=== PATIENT | male | born 1940 | race Caucasian/White ===

== ENCOUNTER 2016-03-20 08:36 | Day surgery (SDC) | payer MEDICARE, OTHER ==
[~2016-03-20] VITALS: Ht 185.4 cm; Wt 108.4 kg
[2016-03-20] VITALS (9 sets, daily range): BP systolic 132–164; BP diastolic 75–100
[~2016-03-20 08:36] MED LIST: ALPR0.2550 PO; ASP81TEC PO; ASPI-808 PO; ASPI1TAB17 PO; ATOR40TA70 PO; CANA300T PO; CETI10TA17 PO; CHOL100061 PO; CHOL200059 PO; CYAN100071 PO; CYAN50005 PO; DULA1.5P2 SQ; DULO60CA6 PO; ENAL2.5T PO; ENAL5TAB PO; GLUC1CAP9 PO; HYDR1TAB66 PO; MAGN100T3 PO; MELO-195 PO; MTP25TSR PO; MTX2.5T PO; MULT-608 PO; NAPR220T76 PO; OMEG1CAP74 PO; POTA99TA7 PO; SITA1TAB2 PO; SITA1TAB6 PO; TRAM50TA2 PO
[2016-03-20] MEDS ORDERED: HEParin (CATH LAB) 2,000 ML IV ONE (10:18)
[2016-03-20] MEDS ORDERED: LIDOCAINE 1% INJ 20 ML (XYLOCAINE) VIAL ONE (10:18)
[2016-03-20] MEDS ORDERED: NS IV 1000 ML 1,000 ML ONE (10:18)
[2016-03-20] MEDS ORDERED: NS IV 1000 ML 1,000 ML IV SCH (10:56)
[2016-03-20 11:05] LABS: MEAN PLATELET VOLUME 10.7 FL (7.4-10.4); RED BLOOD COUNT 5.27 10^6/uL (4.35-5.85); RED CELL DISTRIBUTION WIDTH 13.3 % (10.0-14.5); WHITE BLOOD COUNT 7.4 10^3/uL (4.3-11.0)
[2016-03-20 11:16] LABS: PROTHROMBIN TIME PATIENT 12.9 SEC (12.2-14.7)
--- NOTE | 2016-03-20 11:17 | Diagnostic Imaging Report ---
INDICATION: Peripheral vascular disease. EXAMINATION: Portable chest at 11:08 AM. FINDINGS: The heart size and pulmonary vascularity are normal. The lungs are clear. There are no effusions or pneumothoraces. IMPRESSION: Negative chest. Dictated by: Dictated on workstation # [id number]
[2016-03-20] MEDS ORDERED: GLUC-173 PO (11:24)
[2016-03-20 11:26] LABS: ALANINE AMINOTRANSFERASE 87 U/L (0-55); ALBUMIN 4.5 G/DL (3.2-4.5); ANION GAP 11 MMOL/L (5-14); ASPARTATE AMINO TRANSFERASE 52 U/L (5-34); BILIRUBIN,TOTAL 0.6 MG/DL (0.1-1.0); BLOOD UREA NITROGEN 9 MG/DL (7-18); BUN/CREATININE RATIO 9; CALCIUM 9.5 MG/DL (8.5-10.1); CARBON DIOXIDE 21 MMOL/L (21-32); CHLORIDE 109 MMOL/L (98-107); CHOLESTEROL 197 MG/DL (< 200); CREATININE SERUM 0.95 MG/DL (0.60-1.30); DIRECT LDL 127 MG/DL (1-129); GFR ESTIMATED > 60; GLUCOSE 115 MG/DL (70-105); POTASSIUM 4.2 MMOL/L (3.6-5.0); SODIUM 141 MMOL/L (135-145); TOTAL PROTEIN 7.2 G/DL (6.4-8.2); TRIGLYCERIDES 214 MG/DL (<150); VLDL CHOLESTEROL 43 MG/DL (5-40)
[2016-03-20] MEDS ORDERED: METO-272 PO (11:28)
[2016-03-20] MEDS ORDERED: fentaNYL INJECTION 100 MCG/2 ML AMP ONE (12:23)
[2016-03-20] MEDS ORDERED: MIDAZOLAM 5 MG/5 ML (VERSED) VIAL ONE (12:23)
--- NOTE | 2016-03-20 12:46 | Cardiac Procedure Note-CS/ASA ---
Pre-Procedure Note Pre-Op Procedure Note H&P Reviewed The H&P was reviewed, patient examined and no changes noted. Date H&P Reviewed: Mar 20, 2016 Time H&P Reviewed: 12:46 Conscious Sedation Pre-Proced Time Reviewed: 12:46 ASA Class: 3 Airway Mallampati Classification: ([place] appropriate class) I. II. III, IV Lungs Heart ASA score ASA 1: a normal healthy patient ASA 2: a patient with a mild systemic disease (mid diabetes, controlled hypertension, obesity x ASA 3: a patient with a severe systemic disease that limits activity (angina , COPD, prior Myocardial infarction) ASA 4: a patient with an incapacitating disease that is a constant threat to life (CHF, renal failure) ASA 5: a moribund patient not expected to survive 24 hrs. (ruptured aneurysm) ASA 6: a declared brain patient whose organs are being harvested. For emergent operations, add the letter E after the classification Grade 3 Sedation Plan: Analgesia, Amnesia, Plan communicated to team members, Discussed options with patient/fam, Discussed risks with patient/fam Note The patient is an appropriate candidate to undergo the planned procedure, sedation, and anesthesia. The patient immediately re-assessed prior to indication. GINNA SALGADO MD Mar 20, 2016 12:46
[2016-03-20] MEDS ORDERED: HEParin 1000 UNIT/ML (10ML VIAL) FOR BOLUS ONE (12:54)
[2016-03-20] MEDS ORDERED: PATIENT MAY USE OWN MEDS, ALL PO SCH (14:00)
[2016-03-20] MEDS ORDERED: CLOPIDOGREL 300 MG (PLAVIX) TABLET PO ONE (14:09)
[2016-03-20] MEDS ORDERED: ASPIRIN 325 MG (5 GR) TABLET ONE (14:09)
[2016-03-20] MEDS: ENALAPRIL 2.5 MG (VASOTEC) TAB PO SCH (18:51)
[2016-03-20] MEDS: NS IV 1000 ML 1,000 ML IV SCH (18:51)
[2016-03-21] VITALS: BP 155/76
[2016-03-21] MEDS: NS IV 1000 ML 1,000 ML IV SCH (02:01)
[2016-03-21 04:00] VITALS: BP 136/67
[2016-03-21 06:30] LABS: MEAN PLATELET VOLUME 10.2 FL (7.4-10.4); RED BLOOD COUNT 4.73 10^6/uL (4.35-5.85); RED CELL DISTRIBUTION WIDTH 13.3 % (10.0-14.5)
[2016-03-21 06:46] LABS: ANION GAP 9 MMOL/L (5-14); BLOOD UREA NITROGEN 9 MG/DL (7-18); BUN/CREATININE RATIO 10; CARBON DIOXIDE 23 MMOL/L (21-32); CHLORIDE 105 MMOL/L (98-107); CREATININE SERUM 0.88 MG/DL (0.60-1.30); GFR ESTIMATED > 60; GLUCOSE 123 MG/DL (70-105); POTASSIUM 3.9 MMOL/L (3.6-5.0); SODIUM 137 MMOL/L (135-145)
--- NOTE | 2016-03-21 07:40 | Cardiology Progress Note ---
Subjective Subjective/Events-last exam patient is laying down in bed, denied any chest pain or shortness of breath. Groin is healing well, pedal pulse is palpable diminished. Review of Systems General: No Chills, No Night Sweats, No Fatigue, No Malaise, No Appetite, No Other HEENT: No Head Aches, No Visual Changes, No Eye Pain, No Ear Pain, No Dysphasia , No Sinus Congestion, No Post Nasal Drip, No Sore Throat, No Other Pulmonary: No Dyspnea, No Cough, No Pleuritic Chest Pain, No Other Cardiovascular: No: Chest Pain, Edema, Lt Headedness, Orthopnea, Other, Palpitations, Paroxysmal Noc. Dyspnea Objective-Cardiology Exam Last Set of Vital Signs Vital Signs 03/21/16 04:00 Temp 98.9 Pulse 77 Resp 18 B/P 136/67 Pulse Ox 90 O2 Delivery Room Air Capillary Refill : Less Than 3 Seconds General: Alert, Oriented X3, Cooperative HEENT: Atraumatic, PERRLA Neck: Supple, No JVD, No Thyromegaly Lungs: Clear to Auscultation, Normal Air Movement Heart: Regular Rate, Normal S1, Normal S2, No Murmurs Abdomen: Normal Bowel Sounds, Soft, No Tenderness, No Hepatosplenomegaly, No Masses Extremities: No Clubbing, No Cyanosis, No Edema, Normal Pulses, No Tenderness/ Swelling Skin: No Rashes, No Breakdown, No Significant Lesion Neuro: Normal Gait, Normal Speech, Strength at 5/5 X4 Ext, Normal Tone, Sensation Intact Psych/Mental Status: Mental Status NL, Mood NL Results Lab Laboratory Tests 03/20/16 10:45 03/21/16 06:16 A/P-Cardiology Admission Diagnosis peripheral arterial disease Hypertension Hyperlipidemia Claudication Assessment/Plan Peripheral arterial disease, medical therapy is recommended Hypertension, controlled continue current medication Hyperlipidemia, continue current medication monitor Claudication, recommended exercise. GINNA SALGADO MD Mar 21, 2016 07:40
[2016-03-21] MEDS ORDERED: CLOP75TA28 PO (07:41)
[2016-03-21] MEDS ORDERED: ASPI-983 PO (07:41)
--- NOTE | 2016-03-21 07:42 | Discharge Inst-Post CATH ---
Discharge Inst-CATH Post Cardiac Cath D/C Inst Follow Up/Plan Hold metformin for [address] Jaime's office in 2-4 weeks CARDIAC CATH DISCHARGE INSTRUCTIONS *Hold Metformin for 48 hours post heart cath. ACTIVITY * Go Home directly and rest. * Limit activity of the leg (or wrist if it was used) for 7 days including aerobics, swimming, jogging, bicycling, etc. * Restrict stair-climbing for 7 days if possible, if not, climb up with your non -cath leg, then bring together on the same step. * Avoid lifting, pushing, pulling or excessive movement of the affected extremity for 7 days. * Customary sexual activity may be resumed after 2 days-use caution not to use a position that strains or causes pain to the affected extremity. * No driving for 24 hours. * NO SMOKING. * Avoid straining for bowel movements for 7 days. * Gentle walking on level ground is allowed. * Returning to work will depend on the type of procedure and the results. Your doctor will discuss this with you. CALL YOUR DOCTOR FOR ANY OF THE FOLLOWING: *If bleeding from the puncture site occurs- Apply gentle pressure to site with clean cloth and call your doctor or EMS. * If a knot or lump forms under the skin, increases in size, or causes pain. * If bruising appears to be worsening or moving further down your leg instead of disappearing. * Temperature above 101 F. CARE OF YOUR GROIN INCISION; * Bruising or purple discoloration of the skin near the puncture site is common. * You may shower only, no bathtub bathing for 5 days. Be careful to avoid slipping as your leg may feel stiff. * If a closure device was used on your femoral artery, please see the attached guide regarding care of the device and your leg. * REMOVE the dressing from your groin the next day after your procedure in the shower. CARE OF YOUR WRIST INCISION; * Bruising or purple discoloration of the skin near the puncture site is common. * You may shower. * DO NOT submerge wrist. * Remove dressing in 24 hours. GINNA JAIME MD Mar 21, 2016 07:42
[2016-03-21 08:00] VITALS: BP 150/83
[2016-03-21] MEDS: ENALAPRIL 2.5 MG (VASOTEC) TAB PO SCH (08:20)
[2016-03-21] MEDS ORDERED: meTOproloL SUCCINATE 50 MG (TOPROL XL) TAB PO SCH (09:00)
[2016-03-21] MEDS ORDERED: INVOKANA 300 MG PO SCH (09:00)
[2016-03-21] MEDS ORDERED: ASPIRIN E.C. 81 MG (ECOTRIN) TAB PO SCH (09:00)
[2016-03-21] MEDS ORDERED: CLOPIDOGREL 75 MG (PLAVIX) TABLET PO SCH (09:00)
[2016-03-21] MEDS ORDERED: ATORVASTATIN 40 MG (LIPITOR) TABLET PO SCH (09:00)
--- NOTE | 2016-03-21 11:27 | DISCHARGE SUMMARY ---
PROCEDURE PHYSICIAN: GINNA SALGADO PERIPHERAL ANGIOGRAM REPORT DATE OF PROCEDURE: 03/20/2016 REFERRING PHYSICIAN: Dr. Rudolph BRIEF HISTORY: Mr. Garza is a 75-year-old gentleman with history of peripheral arterial disease. He has moderate disease. He has been having worsening claudication and weakness. He underwent ABIs which was 0.5 on the left and 0.8 on the right. I scheduled him for peripheral angiogram possible angioplasty. PROCEDURE NOTE: After explaining the procedure to the patient, all pros and cons were explained. All questions were answered. The patient signed a consent, then he was placed on the cardiac catheterization laboratory. The right groin was prepped in a sterile fashion. Local anesthesia applied to right groin. 6-[place] sheath was placed in the right femoral artery. Runoff of the right lower extremity was done. Then I advanced a pigtail catheter to the abdominal aorta. Abdominal aortogram and evaluation of the bifurcation was done. Then I advanced a Storq wire in the left common iliac and advanced a pigtail catheter and did runoff through the pigtail in the left lower extremity. I noted significant disease. I advanced short straight wire then long straight wire, then a mini catheter for multiple level angiogram, starting at the proximal SFA distal SFA then the mini catheter was in the anterior tibial artery. On the angiogram there total occlusion of the anterior tibial artery and the posterior tibial artery, reconstructed distally by collaterals. The patient was given 5000 units of heparin. I attempted multiple times to cross that anterior tibial artery occlusion. After using multiple guidewires and catheter I was unsuccessful. I pulled the catheter back to the popliteal artery. Angiogram was done. Then I measured the pressure gradient across the lesion in the distal SFA, which was about 15 to 20 mmHg. Reintroduce Storq wire, removed the straight catheter, then pulled the sheath back to the common femoral artery and did runoff to the left lower extremity. The lesion appeared to be 40 to 50% stenosis at most. At that time, I decided to use conservative management. During the procedure I advanced a balloon to the anterior tibial artery 2.0 x 40 mm [place] inflated to 4 atmospheres for support and advanced the wire in the mid anterior tibial without success. FINDINGS: 1. Abdominal aortogram showed atherosclerotic disease involving the bifurcation. No dissection or aneurysm. 2. Right lower extremity runoff: The right lower extremity showed mild disease in the SFA down to the trifurcation with mild small vessel disease distally. 3. Left lower extremity: The left lower extremity angiogram showed 40 to 50% stenosis in the mid to distal SFA. The anterior tibial artery is occluded and the posterior tibial artery was occluded receiving collaterals distally from the peroneal artery. Attempts for intervention on the total occlusion of anterior tibial artery without success as described above. CONCLUSION: 1. Total occlusion of the anterior and posterior tibial artery receiving collateral from the peroneal artery. Attempted to intervene on the anterior tibial artery without success. Mild to moderate disease in the mid to distal SFA, nonobstructive disease. Mild disease otherwise. 2. Right lower extremity angiogram showed a good flow down to the trifurcation with mild disease distally, small vessel disease. 3. Mild atherosclerotic plaque in the abdominal aorta/ DISCUSSION AND RECOMMENDATION: The patient will be treated medically. Continue to monitor. If the patient developed ischemic ulcer or ischemic foot I will consider pedal access with retrograde attempt. FINAL DIAGNOSIS: 1. Peripheral arterial disease. 2. Carotid stenosis. 3. Hypertension. 4. Hyperlipidemia Job ID: [id number] Dictated Date: 03/20/2016 14:07:21 Grove Superintendent Date: 03/21/2016 11:24:53/martín
== END 2016-03-21 08:47 | disposition home or self-care (01) ==
LOC: CATH 08:36 → ICU 17:33 → 4TH 20:36 → CATH 03-21 08:47
PROVIDERS: ATTEND Internal Medicine Cardiovascular Disease
DX: I70.213 Atherosclerosis of native arteries of extremities with intermittent claudication, bilateral legs (principal); I10 Essential (primary) hypertension; E78.5 Hyperlipidemia, unspecified; I65.29 Occlusion and stenosis of unspecified carotid artery; E66.9 Obesity, unspecified; E11.9 Type 2 diabetes mellitus without complications; F41.8 Other specified anxiety disorders; I49.3 Ventricular premature depolarization; M06.9 Rheumatoid arthritis, unspecified; Z79.899 Other long term (current) drug therapy; Z87.891 Personal history of nicotine dependence; Z68.31 Body mass index [BMI] 31.0-31.9, adult
CPT/HCPCS: 36247; 36415; 37228; 71010; 75625; 75716; 75774; 80048; 80053; 80061; 85027; 85347; 85610; 85730; 87081; 93005

== ENCOUNTER → 2018-03-06 | Outpatient (CLI) | payer MEDICARE, OTHER ==
[~2018-03-06] MED LIST changes: +ASPI-983 PO; +CLOP75TA28 PO; +GLUC-173 PO; +METO-370 PO
== END ==
LOC: CARD 09:39
PROVIDERS: ATTEND Internal Medicine Cardiovascular Disease
DX: R07.9 Chest pain, unspecified (principal); I49.9 Cardiac arrhythmia, unspecified; I10 Essential (primary) hypertension; E78.5 Hyperlipidemia, unspecified; I34.0 Nonrheumatic mitral (valve) insufficiency; E11.9 Type 2 diabetes mellitus without complications; R60.9 Edema, unspecified; M06.9 Rheumatoid arthritis, unspecified
CPT/HCPCS: 93306

== ENCOUNTER → 2018-03-09 | Outpatient (CLI) | payer MEDICARE, OTHER ==
[~2018-03-09] VITALS: Ht 185.4 cm; Wt 111.6 kg
[~2018-03-09] MED LIST changes: +CATHETER FLUSH 10 ML SYR IV PRN; +REGADENOSON 0.4 MG/5 ML SYR (LEXISCAN) IV ONE
[2018-03-09 09:13] VITALS: BP 165/97
[2018-03-09 09:16] VITALS: BP 165/97
[2018-03-09 09:17] VITALS: BP 153/94
--- NOTE | 2018-03-09 11:47 | STRESS TEST ---
DATE OF SERVICE: 03/09/2018 LEXISCAN MYOVIEW STRESS TEST REPORT Baseline heart rate is 77, baseline blood pressure 165/97. Baseline EKG is sinus rhythm with no ischemic changes. In summary, the patient was injected with 10.06 mCi of technetium-99 Myoview and the resting images were obtained. Then, the patient received 0.4 mg of Lexiscan followed by 29.2 mCi of technetium-99 Myoview. Throughout the test, there were no EKG changes, frequent PVCs noted after the Lexiscan injection with ventricular trigeminy. The resting and stress images were reviewed and compared in the short axis, horizontal long axis, and vertical long axis views. Review of the images showed good radiotracer uptake with no significant ischemia or infarction. SSS is 0. TID value 0.99. On the gated images, the left ventricle appeared to be in normal size with normal contractility. Calculated ejection fraction 57%. CONCLUSION: 1. The patient tolerated Lexiscan well. 2. Frequent premature ventricular contraction noted during test including ventricular trigeminy. 3. Normal left ventricular size with normal contractility. Calculated ejection fraction 57%. 4. No ischemia or infarction on SPECT images. Job ID: [id number] DocumentID: [id number] Dictated Date: 03/09/2018 11:34:07 Financial Services Agent Date: 03/09/2018 11:46:14 Dictated By: GINNA SALGADO MD
== END ==
LOC: CARD 07:31
PROVIDERS: ATTEND Internal Medicine Cardiovascular Disease
DX: R07.9 Chest pain, unspecified (principal); I10 Essential (primary) hypertension; E78.5 Hyperlipidemia, unspecified; I34.0 Nonrheumatic mitral (valve) insufficiency; E11.9 Type 2 diabetes mellitus without complications; R60.0 Localized edema; M06.9 Rheumatoid arthritis, unspecified
CPT/HCPCS: 78452; 93017

== ENCOUNTER → 2019-05-17 | Outpatient (CLI) | payer MEDICARE, OTHER ==
[~2019-05-17] MED LIST changes: -CATHETER FLUSH 10 ML SYR IV PRN; -METO-370 PO; +METO50TA7 PO; -REGADENOSON 0.4 MG/5 ML SYR (LEXISCAN) IV ONE
--- NOTE | 2019-05-17 13:01 | Diagnostic Imaging Report ---
PROCEDURE: US right lower extremity venous. TECHNIQUE: Multiple Real-time grayscale images were obtained over the right lower extremity in various projections. Additional spectral analysis and color Doppler duplex images were also obtained. INDICATION: Lump in the right popliteal region. FINDINGS: There is no evidence of right lower extremity DVT. The right lower extremity deep venous system shows normal compressibility with normal response to augmentation and Valsalva. There is a solid-appearing mass in the posterior right knee measuring up to 8.7 x 6.0 x 6.5 cm. There is internal vascularity. No other abnormalities are identified. IMPRESSION: 1. No evidence of right lower extremity DVT. 2. Large solid mass in the posterior right knee. This could represent a very large lymph node or other neoplastic process. A dedicated MRI of the right knee with and without intravenous contrast would be recommended for further characterization. Dictated by: Dictated on workstation # [id number]
== END ==
LOC: RAD 11:29
PROVIDERS: ATTEND Family Medicine
DX: R22.41 Localized swelling, mass and lump, right lower limb (principal)

== ENCOUNTER → 2019-05-20 | Outpatient (CLI) | payer MEDICARE, OTHER ==
[~2019-05-20] MED LIST changes: +GADOBUTROL 10 MMOL/10 ML (GADAVIST) VIAL IV ONE
[2019-05-20 08:31] LABS: BUN/CREATININE RATIO 12; CREATININE SERUM 0.97 MG/DL (0.60-1.30); GFR ESTIMATED > 60
--- NOTE | 2019-05-20 11:48 | Diagnostic Imaging Report ---
PROCEDURE: MR imaging right lower extremity with and without contrast. TECHNIQUE: Multiplanar, multisequence pre and post contrast-enhanced MR imaging of the right lower extremity was accomplished. INDICATION: Mass growing in the posterior aspect of the knee, recent sonogram which demonstrated a lesion not consistent with a cyst. EXAMINATION: An MRI of the right lower extremity without contrast 05/20/2019. FINDINGS: Correlation is made to recent sonogram dated 05/17/2019. There is a large heterogeneous mass within the posterior knee corresponding to sonographic findings. This currently measures 9.9 cm craniocaudal dimension, 6 cm AP dimension and 8 cm transverse dimension. It is predominantly T2 hyperintense. A more focal area of marked hyperintensity seen centrally on T2-weighted imaging perhaps focal fluid. Adjacent to this hyperintensity are areas of linear hypointensity which have signal characteristics demonstrating mild questioned susceptibility artifact. These could be hemorrhagic components or even vascular components. Calcifications in the region could cause a similar appearance as well. There is surrounding edema about the lesion. This lesion predominantly lies along the lateral border of the medial gastrocnemius muscle. It is difficult to ascertain if this is intramuscular or lies adjacent to the muscle pushing the muscle towards the left. The anterior border of the lesion immediately abuts the neurovascular bundle. There are multiple adjacent prominent vessels inferior to the mass extending into the medial gastrocnemius muscle. The underlying osseous structures demonstrate no evidence for acute abnormality. Within the knee itself the ACL PCL and extensor mechanism appear intact. MCL and lateral collateral edematous complex also intact. There is abnormal signal intensity throughout the posterior horn of the medial meniscus. Findings consistent with a tear of the medial posterior meniscus. The lateral meniscus demonstrates abnormal signal intensity as well both anterior and posterior horns consistent with tears. There is diffuse heterogeneity and loss of cartilage in the medial and lateral joint compartments. Patellofemoral cartilage is mildly thinned. There is a small joint effusion. Postcontrast imaging demonstrates diffuse heterogeneous enhancement of the mass with some central residual hypointensity throughout the lesion demonstrating no enhancement. On postcontrast imaging especially the axial sequences there is questioned fluid fluid levels or abnormality along the vasculature inferior to the mass with a possible similar finding proximal to the mass. Recent sonogram demonstrated no evidence for deep vein thrombosis however perhaps repeating the sonogram for reevaluation of the venous and arterial structures could help exclude interval development of an abnormality as clinically indicated. IMPRESSION: 1. Large soft tissue mass as described nonspecific but possibilities include soft tissue sarcoma with other benign and aggressive lesions also in the differential. A vascular mass given its proximity to the neurovascular bundle is not excluded. A neurogenic lesion also in the differential. 2. Abnormal signal intensity seen within some of the vessels proximal and distal to the mass, small nonocclusive deep vein thrombus difficult to completely exclude although not seen recently but repeat sonogram may be warranted depending on the patient's symptoms and these findings. Please call report to the clinician and lateral no about the venous findings and that a repeat venous sonogram may be warranted thank you Called to Catalina at 11:46 a.m by jane. Dictated on workstation # [id number]
== END ==
LOC: RAD 07:40
PROVIDERS: ATTEND Family Medicine
DX: R22.41 Localized swelling, mass and lump, right lower limb (principal); M25.561 Pain in right knee
CPT/HCPCS: 36415; 73720; 82565; 84520

== ENCOUNTER → 2019-05-24 | Outpatient (CLI) | payer MEDICARE, OTHER ==
[~2019-05-24] MED LIST changes: -GADOBUTROL 10 MMOL/10 ML (GADAVIST) VIAL IV ONE
--- NOTE | 2019-05-24 12:25 | Diagnostic Imaging Report ---
PROCEDURE: CT chest, abdomen, and pelvis without contrast. TECHNIQUE: Multiple contiguous axial images were obtained through the chest, abdomen, and pelvis without the use of intravenous contrast. Auto Exposure Controls were utilized during the CT exam to meet ALARA standards for radiation dose reduction. INDICATION: Right popliteal mass. CT CHEST: No axillary lymphadenopathy is detected. No definite mediastinal or hilar lymphadenopathy is detected. No pericardial or pleural fluid is detected. No pulmonary mass, nodule or infiltrate is detected. IMPRESSION: Unremarkable noncontrast CT of the chest. CT ABDOMEN AND PELVIS: No discrete liver mass is detected. Gallbladder is unremarkable. No biliary duct dilatation is identified. The pancreas and spleen are unremarkable. No adrenal mass is detected. No definite renal calculi or hydronephrosis is identified. Aorta is non-aneurysmal. Patient does have a retroaortic left renal vein, a normal variant. No central retroperitoneal or mesenteric lymphadenopathy is detected. The small and large bowel loops are normal in caliber. No obstruction is identified. No free fluid or fluid collection is seen. The bladder and prostate are unremarkable. No definite iliac or inguinal lymphadenopathy is detected. The bony structures appear nonacute. IMPRESSION: Essentially unremarkable noncontrast CT of the abdomen and pelvis. No mass or evidence of lymphadenopathy is detected. Dictated by: Dictated on workstation # [id number]
== END ==
LOC: RAD 11:36
PROVIDERS: ATTEND Family Medicine
DX: R22.41 Localized swelling, mass and lump, right lower limb (principal)
CPT/HCPCS: 71250; 74176

== ENCOUNTER → 2019-09-16 | Outpatient (CLI) | payer MEDICARE, OTHER | LOC: LABNPT 08:24 | PROVIDERS: ATTEND Orthopaedic Surgery | DX: Z20.828 Contact with and (suspected) exposure to other viral communicable diseases (principal) | CPT/HCPCS: 87635 ==

== ENCOUNTER → 2019-10-11 | Outpatient (CLI) | payer MEDICARE, OTHER | LOC: CARD 12:38 | PROVIDERS: ATTEND Internal Medicine Hematology & Oncology | DX: I51.7 Cardiomegaly (principal); C49.9 Malignant neoplasm of connective and soft tissue, unspecified; Z20.828 Contact with and (suspected) exposure to other viral communicable diseases | CPT/HCPCS: 93306 ==

== ENCOUNTER 2019-10-19 07:15 | Outpatient (CLI) | payer MEDICARE, OTHER ==
[~2019-10-19] VITALS: Ht 185.4 cm; Wt 95.3 kg
[2019-10-19] MEDS ORDERED: OXYC5CAP18 PO (11:05)
[2019-10-19] MEDS ORDERED: POTA99TA21 PO (11:05)
[2019-10-19] MEDS ORDERED: ASPI-983 PO (11:05)
[2019-10-19] MEDS ORDERED: METF-399 PO (11:05)
[2019-10-19] MEDS ORDERED: EXEN2PEN SQ (11:05)
== END 2019-10-19 11:12 | disposition home or self-care (01) ==
LOC: PREOP 07:15
PROVIDERS: ATTEND Surgery
DX: Z01.818 Encounter for other preprocedural examination (principal)

== ENCOUNTER 2019-10-21 10:38 | Day surgery (SDC) | payer MEDICARE, OTHER ==
[~2019-10-21] VITALS: Ht 185.4 cm; Wt 95.3 kg
[2019-10-21] VITALS (7 sets, daily range): BP systolic 119–135; BP diastolic 42–73
[~2019-10-21 10:38] MED LIST changes: +EXEN2PEN SQ; +METF-399 PO; +OXYC5CAP18 PO; +POTA99TA21 PO
[2019-10-21] MEDS ORDERED: HEParin (CENTRAL IV FLUSH) 500 UNIT/5 ML SYR ONE (10:44)
[2019-10-21] MEDS ORDERED: BUP/EPI 0.5% 1:200,000 (MARCAINE) 10ML VIAL IJ ONE (10:44)
[2019-10-21] MEDS ORDERED: 0.9% SODIUM CHLORIDE PF INJ 20 ML VIAL ONE (10:44)
[2019-10-21] MEDS: LACTATED RINGERS 1,000 ML IV PRN ×2 (11:00→11:15)
[2019-10-21] MEDS ORDERED: ceFAZolin 2 GM IV Premixed 50 ML IV ONE (11:30)
[2019-10-21] MEDS ORDERED: MIDAZOLAM 2 MG/2 ML (VERSED) VIAL ONE (11:55)
[2019-10-21] MEDS ORDERED: fentaNYL INJECTION 100 MCG/2 ML AMP ONE (11:55)
--- NOTE | 2019-10-21 12:17 | Progress Note-Pre Operative ---
Pre-Operative Progress Note H&P Reviewed The H&P was reviewed, patient examined and no changes noted. 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
[2019-10-21] MEDS ORDERED: HYDR-3812 PO (12:19)
--- NOTE | 2019-10-21 12:20 | Discharge Inst-Surgical ---
D/C Lap Instructions-RACHELL New, Converted, or Re-Newed RX: RX on Chart Follow Up PRN Activity as tolerated Regular Diet Symptoms to Report: Fever over 101 degree F, Nausea/Vomiting Infection Signs and Symptoms to report: Increased redness, Foul odor of wound, Increased drainage Bathing instructions: May shower Operative Area Clean/Dry; Keep incision clean/dry If any problems/questions: Contact your physician or go to Emergency Room MAI LOVETT MD Oct 21, 2019 12:20
[2019-10-21] MEDS ORDERED: ONDANSETRON 4 MG/2 ML (SDV) Z0FRAN IVP PRN (12:30)
[2019-10-21] MEDS ORDERED: ACETAMINOPHEN 325 MG TABLET PO PRN (12:30)
[2019-10-21] MEDS ORDERED: HYDROcodone/APAP 5 MG/325 MG (LORTAB) TAB PO ONE (12:30)
[2019-10-21] MEDS ORDERED: morphine INJ 10 MG/ML 1ML (SYR OR VIAL) IVP PRN ×2 (12:30)
[2019-10-21] MEDS ORDERED: proPOfol 200 MG/20 ML (DIPRIVAN) VIAL IV ONE (12:48)
[2019-10-21] MEDS ORDERED: LIDOCAINE PF 2% 5 ML (XYLOCAINE) VIAL ONE (12:48)
--- NOTE | 2019-10-21 12:58 | Progress Note-Post Operative ---
Post-Operative Progess Note Surgeon (s)/Group Burner Machine (s) Surgeon MAI LOVETT MD Group Burner Machine: anselmo lazcano HYDROGEN PLANT OPERATOR Pre-Operative Diagnosis metastatic sarcoma right lower extremity Post-Operative Diagnosis same Procedure & Operative Findings Date of Procedure 10/21/19 Procedure Performed/Findings left subclavian groshong implantable catheter placement under flouroscopy. Anesthesia Type mac with local Estimated Blood Loss Estimated blood loss (mL): minimal Specimens/Packing Specimens Removed none MAI LOVETT MD Oct 21, 2019 12:58
--- NOTE | 2019-10-21 13:41 | Anesthesia-General Post-Op ---
MAC Patient Condition Mental Status/LOC: Same as Preop Cardiovascular: Satisfactory Nausea/Vomiting: Absent Respiratory: Satisfactory Pain: Controlled Complications: Absent Post Op Complications Complications None Follow Up Care/Instructions Patient Instructions None needed. Anesthesiology Discharge Order Discharge Order Patient is doing well, no complaints, stable vital signs, no apparent adverse anesthesia problems. No complications reported per nursing. AFSANEH WAGONER CRNA Oct 21, 2019 13:41
--- NOTE | 2019-10-21 14:51 | Diagnostic Imaging Report ---
INDICATION: Fluoroscopy for Groshong catheter placement. Fluoroscopy was provided in the OR during Groshong catheter placement. 10 seconds of fluoroscopic time was utilized. Single image was obtained demonstrating a left-sided Groshong catheter with tip overlying SVC. IMPRESSION: Fluoroscopy for Groshong catheter placement. Dictated by: Dictated on workstation # [id number]
--- NOTE | 2019-10-21 23:10 | OPERATIVE REPORT ---
DATE OF SERVICE: 10/21/2019 ATTENDING PRIMARY CARE PHYSICIAN: Dr. Gabbie Rudolph. PREOPERATIVE DIAGNOSIS: Right lower extremity metastatic sarcoma. POSTOPERATIVE DIAGNOSES: Right lower extremity metastatic sarcoma. PROCEDURE: Placement of left subclavian Groshong implantable catheter under fluoroscopy. SURGEON: Ysabel Lovett MD INSTRUCTIONAL MATERIALS DIRECTOR: Torin Hyman APRN. ANESTHESIA: Monitored anesthesia care with local. ESTIMATED BLOOD LOSS: Minimal. FINDINGS: Catheter tip at superior vena caval -- right atrial junction. DISPOSITION: The patient tolerated the procedure well. INDICATIONS: The patient is a 79-year-old male who states that he developed pain and noticed a mass in the right popliteal region approximately 5 months ago. He then states that the lesion grew rapidly in size over a short period of time. He then underwent an ultrasound as well as an MRI, which was consistent with a soft tissue sarcoma. The lesion was 8.7 x 6.5 x 6 cm in size. He then underwent radiation therapy to downsize the lesion and underwent resection of the sarcoma on 09/23/2019. He did have further workup, which did show bilateral pulmonary metastatic nodules. A total of 4 identified. He does not appear to be a surgical candidate for resection of these lesions and will undergo chemotherapy. DESCRIPTION OF PROCEDURE: The patient was brought to the operating room, laid supine on the table. After adequate IV pain and stated medications and monitored anesthesia care, the chest and neck were prepped and draped in standard surgical fashion. A 1% lidocaine with epinephrine was then used to anesthetize overlying skin in the left subclavian region. The left subclavian vein was then cannulated with drawing of venous blood. Guidewire was then inserted without any resistance under fluoroscopy. The cannulating needle removed and a skin incision made using a 15 blade. The dilator and sheath were then placed over the guidewire. The guidewire and the dilator were then removed and a Groshong implantable catheter placed until the catheter tip was at the superior vena caval -- right atrial junction. The inner wire within the catheter was removed and the catheter cut down to size and the port placed onto the catheter. The chest reservoir was then created by extending the skin incision laterally. A plane created between the subcutaneous fat as well as the anterior pectoralis fascia using electrocautery as well as blunt dissection. Good hemostasis was observed and the port was placed into the reservoir and sutured to the anterior pectoralis fascia using interrupted 3-0 Vicryl suture. Subcutaneous tissue was then reapproximated using 3-0 Vicryl interrupted suture and the skin was closed using 4-0 Monocryl running subcuticular suture. Wound was then cleaned and covered with Dermabond. The patient tolerated the procedure well. We will get a post-procedure chest x-ray once confirmation of placement, the port may be accessed and used at any time. Job ID: [id number] DocumentID: [id number] Dictated Date: 10/21/2019 12:50:05 Field Investigator Date: 10/21/2019 23:09:37 Dictated By: YSABEL LOVETT MD
--- NOTE | 2019-10-22 08:18 | Diagnostic Imaging Report ---
INDICATION: Port-A-Cath placement Frontal chest obtained at 0131 p.m. is compared to 03/20/2016. The heart is mildly enlarged. Mediastinal silhouette is unremarkable. The lungs are clear. There is no pneumothorax or pleural fluid. There is a Port-A-Cath over the left chest with catheter tip overlying the distal SVC. IMPRESSION: Cardiomegaly. No focal infiltrate or pneumothorax or pleural fluid. Left-sided portacatheter the left subclavian vein with tip overlying SVC. Dictated by: Dictated on workstation # [id number]
== END 2019-10-21 14:20 | disposition home or self-care (01) ==
LOC: SDC 10:38
PROVIDERS: ATTEND Surgery
DX: C49.21 Malignant neoplasm of connective and soft tissue of right lower limb, including hip (principal); C78.01 Secondary malignant neoplasm of right lung; C78.02 Secondary malignant neoplasm of left lung; I10 Essential (primary) hypertension; E11.40 Type 2 diabetes mellitus with diabetic neuropathy, unspecified; E78.00 Pure hypercholesterolemia, unspecified; G47.33 Obstructive sleep apnea (adult) (pediatric); E78.5 Hyperlipidemia, unspecified; Z87.891 Personal history of nicotine dependence; Z79.899 Other long term (current) drug therapy; Z79.84 Long term (current) use of oral hypoglycemic drugs; Z88.8 Allergy status to other drugs, medicaments and biological substances
CPT/HCPCS: 36561; 71045; 76000; 82962; 87081; 94664; C1788

== ENCOUNTER 2019-10-25 13:45 | Outpatient (RCR) | payer MEDICARE, OTHER ==
[2019-08-06 10:11] LABS: BASOPHILS % (AUTO) 0 % (0-10); EOSINOPHILS # (AUTO) 0.1 10^3/uL (0.0-0.3); EOSINOPHILS % (AUTO) 1 % (0-10); HEMATOCRIT 41 % (40-54); HEMOGLOBIN 13.5 G/DL (13.3-17.7); LYMPHOCYTES # (AUTO) 1.5 X 10^3 (1.0-4.0); LYMPHOCYTES % (AUTO) 13 % (12-44); MEAN CORPUSCULAR HEMOGLOBIN 29 PG (25-34); MEAN CORPUSCULAR HGB CONC 33 G/DL (32-36); MEAN CORPUSCULAR VOLUME 89 FL (80-99); MEAN PLATELET VOLUME 9.6 FL (7.4-10.4); MONOCYTES # (AUTO) 1.2 X 10^3 (0.0-1.0); MONOCYTES % (AUTO) 10 % (0-12); NEUTROPHILS # (AUTO) 8.7 X 10^3 (1.8-7.8); NEUTROPHILS % (AUTO) 76 % (42-75); PLATELET COUNT 484 10^3/uL (130-400); WHITE BLOOD COUNT 11.5 10^3/uL (4.3-11.0)
[2019-08-06 10:29] LABS: ALANINE AMINOTRANSFERASE 23 U/L (0-55); ALKALINE PHOSPHATASE 102 U/L (40-136); BILIRUBIN,TOTAL 0.7 MG/DL (0.1-1.0); BUN/CREATININE RATIO 12; CALCIUM 10.2 MG/DL (8.5-10.1); CARBON DIOXIDE 20 MMOL/L (21-32); CHLORIDE 103 MMOL/L (98-107); GFR ESTIMATED > 60; GLUCOSE 124 MG/DL (70-105); POTASSIUM 4.5 MMOL/L (3.6-5.0); SODIUM 138 MMOL/L (135-145); TOTAL PROTEIN 7.8 GM/DL (6.4-8.2)
[2019-09-08 09:41] LABS: BASOPHILS % (AUTO) 0 % (0-10); EOSINOPHILS # (AUTO) 0.2 10^3/uL (0.0-0.3); EOSINOPHILS % (AUTO) 2 % (0-10); HEMATOCRIT 42 % (40-54); HEMOGLOBIN 13.3 G/DL (13.3-17.7); LYMPHOCYTES # (AUTO) 2.1 X 10^3 (1.0-4.0); LYMPHOCYTES % (AUTO) 16 % (12-44); MEAN CORPUSCULAR HEMOGLOBIN 28 PG (25-34); MEAN CORPUSCULAR HGB CONC 32 G/DL (32-36); MEAN CORPUSCULAR VOLUME 88 FL (80-99); MEAN PLATELET VOLUME 9.4 FL (7.4-10.4); MONOCYTES # (AUTO) 1.1 X 10^3 (0.0-1.0); MONOCYTES % (AUTO) 8 % (0-12); NEUTROPHILS # (AUTO) 9.2 X 10^3 (1.8-7.8); NEUTROPHILS % (AUTO) 74 % (42-75); PLATELET COUNT 554 10^3/uL (130-400); WHITE BLOOD COUNT 12.6 10^3/uL (4.3-11.0)
[2019-09-08 09:58] LABS: ALANINE AMINOTRANSFERASE 37 U/L (0-55); ALKALINE PHOSPHATASE 118 U/L (40-136); BILIRUBIN,TOTAL 0.6 MG/DL (0.1-1.0); BUN/CREATININE RATIO 10; CALCIUM 10.1 MG/DL (8.5-10.1); CARBON DIOXIDE 24 MMOL/L (21-32); CHLORIDE 101 MMOL/L (98-107); GFR ESTIMATED > 60; GLUCOSE 120 MG/DL (70-105); POTASSIUM 4.1 MMOL/L (3.6-5.0); SODIUM 141 MMOL/L (135-145); TOTAL PROTEIN 7.8 GM/DL (6.4-8.2)
[2019-10-18 10:03] LABS: BASOPHILS % (AUTO) 0 % (0-10); EOSINOPHILS # (AUTO) 0.3 10^3/uL (0.0-0.3); EOSINOPHILS % (AUTO) 3 % (0-10); HEMATOCRIT 39 % (40-54); HEMOGLOBIN 12.5 G/DL (13.3-17.7); LYMPHOCYTES # (AUTO) 2.1 X 10^3 (1.0-4.0); LYMPHOCYTES % (AUTO) 23 % (12-44); MEAN CORPUSCULAR HEMOGLOBIN 28 PG (25-34); MEAN CORPUSCULAR HGB CONC 32 G/DL (32-36); MEAN CORPUSCULAR VOLUME 88 FL (80-99); MEAN PLATELET VOLUME 10.6 FL (7.4-10.4); MONOCYTES # (AUTO) 0.7 X 10^3 (0.0-1.0); MONOCYTES % (AUTO) 8 % (0-12); NEUTROPHILS # (AUTO) 5.9 X 10^3 (1.8-7.8); NEUTROPHILS % (AUTO) 66 % (42-75); PLATELET COUNT 353 10^3/uL (130-400)
[2019-10-18 10:24] LABS: ALBUMIN 4.1 GM/DL (3.2-4.5); BILIRUBIN,TOTAL 0.4 MG/DL (0.1-1.0); CALCIUM 9.8 MG/DL (8.5-10.1); CREATININE SERUM 1.18 MG/DL (0.60-1.30); POTASSIUM 4.6 MMOL/L (3.6-5.0); TOTAL PROTEIN 7.4 GM/DL (6.4-8.2)
[~2019-10-25 13:45] MED LIST changes: +ACHD5005 PO; +ASPI-1238 PO; -ASPI-983 PO
== END 2019-11-04 | disposition home or self-care (01) ==
LOC: ONC 13:45
PROVIDERS: ATTEND Internal Medicine Hematology & Oncology
DX: C49.21 Malignant neoplasm of connective and soft tissue of right lower limb, including hip (principal); E11.9 Type 2 diabetes mellitus without complications; Z79.899 Other long term (current) drug therapy; Z98.890 Other specified postprocedural states
CPT/HCPCS: 80053; 83615; 85025; G0463; 99213; 99214

== ENCOUNTER 2019-11-18 22:04 | Emergency (ER) | payer MEDICARE, OTHER ==
[~2019-11-18] VITALS: Ht 185 cm; Wt 114.0 kg
[~2019-11-18 22:04] MED LIST changes: -ENAL2.5T PO; +ENLP2.5T PO
--- NOTE | 2019-11-18 22:23 | ED Lower Extremity ---
General Chief Complaint: Post OP Complications/Pain Stated Complaint: POST OP COMPLICATIONS Nursing Triage Note: brought in by [facility] for c/o xavier drainage change x2 hrs. Nursing Sepsis Screen: No Definite Risk Source: patient Exam Limitations: no limitations History of Present Illness Date Seen by Provider: Nov 18, 2019 Time Seen by Provider: 22:08 Initial Comments Patient presents ER by EMS with chief complaint of increased bleeding from the wound starting within the last hour while he was sitting in his recliner doing nothing strenuous. He is wearing a leg immobilizer and does walk with weightbearing as tolerated using a walker. He had a surgery last , one week ago by Dr. 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 He is to follow-up with Dr. Gonzalez and start chemotherapy after the infection is controlled. He was in the hospital for 5 days and discharged 2 days ago from [facility]. He is still on Bactrim and Augmentin. He has [address] that had been draining a thin, and translucent serosanguineous drainage and tapering off. After his bleeding started tonight it saturated his clothes and he had a david change to sanguinous discharge into his Valdez-Retana bulb. He does take aspirin and has a history of diabetes not on insulin. He is not on blood thinners. He is not having any significant pain. No fevers chills nausea vomiting shortness of breath or chest pain. No history of coronary disease. Primary care by Dr. Rudolph. Allergies and Home Medications Allergies Coded Allergies: nabumetone (Unverified Allergy, Unknown, 01/29/10) Home Medications Aspirin 81 Mg Tablet.dr, 81 MG PO DAILY, (Reported) Enalapril Maleate 2.5 Mg Tablet, 2.5 MG PO DAILY@1700, (Reported) Exenatide Microspheres 2 Mg/0.65 Ml Pen.injctr, 2 MG SQ WEEK, (Reported) Hydrocodone/Acetaminophen 1 Each Tablet, 1 EACH PO Q4H Prescribed by: MAI LOVETT on 10/21/19 1219 Metformin HCl 1,000 Mg Tablet, 1,000 MG PO DAILY, (Reported) Metoprolol Succinate 50 Mg Tab.er.24h, 50 MG PO DAILY, (Reported) Oxycodone HCl 5 Mg Capsule, 5 MG PO BID PRN for PAIN-MODERATE (5-7), (Reported) Potassium Gluconate 99 Mg Tablet, 99 MG PO DAILY, (Reported) Patient Home Medication List Home Medication List Reviewed: Yes Review of Systems Constitutional: No chills, No diaphoresis EENTM: No ear discharge, No ear pain Respiratory: No cough, No dyspnea on exertion Cardiovascular: No edema, No Hx of Intervention, No vascular heart diseas Gastrointestinal: No abdominal pain, No constipation, No diarrhea Musculoskeletal: No back pain, No joint pain Skin: see HPI All Other Systems Reviewed Negative Unless Noted: Yes Past Gxfpeok-Kokroq-Skkwrv Hx Patient Social History Alcohol Use: Occasionally Uses Number of Drinks Today: Alcohol Beverage of Choice: [place], Wine Recreational Drug Use: No Smoking Status: Former Smoker Type Used: Cigarettes Former Smoker, Quit: Mar 20, 1980 Recent Foreign Travel: No Contact w/Someone Who Travel: No Recent Infectious Disease Expo: No Recent Hopitalizations: Yes (dc'd [facility] 11/11/2019) Immunizations Up To Date Tetanus Booster (TDap): Unknown Date of Pneumonia Vaccine: Nov 29, 2014 Date of Influenza Vaccine: Jan 18, 2017 Seasonal Allergies Seasonal Allergies: Yes Past Medical History Surgeries: Yes (R KNEE SARCOMA REMOVED, L HIP SX) Respiratory: Yes (LUNG CANCER) Currently Using CPAP: No Currently Using BIPAP: No Cardiac: Yes High Cholesterol, Hypertension Neurological: Yes Neuropathy Genitourinary: No Gastrointestinal: No Musculoskeletal: Yes Arthritis, Rheumatoid Arthritis Endocrine: Yes Diabetes, Non-Insulin dep HEENT: Yes (CATARACTS REMOVED) Cataract Cancer: Yes (SARCOMA) Lung, Skin What Type of Treatment Did You: Surgical Intervention Psychosocial: Yes Anxiety, Depression Integumentary: No Blood Disorders: No Physical Exam Vital Signs Vital Signs - First Documented 11/18/19 22:04 Temp 36.0 Pulse 58 Resp 18 B/P (MAP) 158/105 (122) Pulse Ox 95 O2 Delivery Room Air Capillary Refill : Less Than 3 Seconds Height, Weight, BMI Height: 6'1.00" Weight: 246lbs. 0.0oz. 111.169359ht; 33.00 BMI Method:Stated General Appearance: WD/WN, no apparent distress HEENT: PERRL/EOMI, pharynx normal Neck: full range of motion, supple, normal inspection Cardiovascular: normal peripheral pulses, regular rate, rhythm Respiratory: lungs clear, normal breath sounds, no respiratory distress, no accessory muscle use Gastrointestinal: normal bowel sounds, non tender, soft Legs: right leg other (right thigh has a surgical incision sutured clean dry and intact along the popliteal space and posterior thigh. The site of insertion of the 2 drain lines has a modest clot hanging from it and appears to be hemostatic at fresh bright red blood on dressings. There is no erythema, induration or fluctuance palpable.) Neurologic/Tendon: normal sensation, normal motor functions, normal tendon functions, responds to pain, no evidence tendon injury Neurologic/Psychiatric: no motor/sensory deficits, alert, normal mood/affect, oriented x 3 Skin: normal color, warm/dry Progress/Results/Core Measures Results/Orders Lab Results Laboratory Tests Test 11/18/19 22:13 Range/Units White Blood Count 8.3 4.3-11.0 10^3/uL Red Blood Count 4.27 L 4.30-5.52 10^6/uL Hemoglobin 11.8 L 13.3-17.7 g/dL Hematocrit 37 L 40-54 % Mean Corpuscular Volume 87 80-99 fL Mean Corpuscular Hemoglobin 28 25-34 pg Mean Corpuscular Hemoglobin Concent 32 32-36 g/dL Red Cell Distribution Width 16.0 H 10.0-14.5 % Platelet Count 341 130-400 10^3/uL Mean Platelet Volume 9.7 9.0-12.2 fL Immature Granulocyte % (Auto) 0 % Neutrophils (%) (Auto) 63 42-75 % Lymphocytes (%) (Auto) 23 12-44 % Monocytes (%) (Auto) 8 0-12 % Eosinophils (%) (Auto) 5 0-10 % Basophils (%) (Auto) 0 0-10 % Neutrophils # (Auto) 5.2 1.8-7.8 10^3/uL Lymphocytes # (Auto) 1.9 1.0-4.0 10^3/uL Monocytes # (Auto) 0.6 0.0-1.0 10^3/uL Eosinophils # (Auto) 0.4 H 0.0-0.3 10^3/uL Basophils # (Auto) 0.0 0.0-0.1 10^3/uL Immature Granulocyte # (Auto) 0.0 0.0-0.1 10^3/uL Sodium Level 140 135-145 MMOL/L Potassium Level 4.0 3.6-5.0 MMOL/L Chloride Level 106 98-107 MMOL/L Carbon Dioxide Level 21 21-32 MMOL/L Anion Gap 13 5-14 MMOL/L Blood Urea Nitrogen 7 7-18 MG/DL Creatinine 1.23 0.60-1.30 MG/DL Estimat Glomerular Filtration Rate 57 BUN/Creatinine Ratio 6 Glucose Level 108 H 70-105 MG/DL Calcium Level 9.5 8.5-10.1 MG/DL Corrected Calcium 9.7 8.5-10.1 MG/DL Total Bilirubin 0.4 0.1-1.0 MG/DL Aspartate Amino Transf (AST/SGOT) 23 5-34 U/L Alanine Aminotransferase (ALT/SGPT) 26 0-55 U/L Alkaline Phosphatase 78 40-136 U/L Total Protein 6.9 6.4-8.2 GM/DL Albumin 3.8 3.2-4.5 GM/DL My Orders Orders - GEOVANNI LAO Cbc With Automated Diff (11/18/19 22:15) Comprehensive Metabolic Panel (11/18/19 22:15) Vital Signs/I&O 11/18/19 22:04 Temp 36.0 Pulse 58 Resp 18 B/P (MAP) 158/105 (122) Pulse Ox 95 O2 Delivery Room Air Blood Pressure Mean: 122 Progress Progress Note #1: Time: 22:25 Progress Note Spontaneous bleeding from surgical wound. Blood appears to be fresh and is likely not from a hematoma. Concern for possible drain tube eroding into a vein. It has become hemostatic by the time he arrived. We'll get some labs to see what his creatinine function is as we may do a CT scan with IV contrast. We'll clean the site with chlorhexidine, sterile saline and repacked it with gauze and dressed it. Called [facility] at [phone] and left a message to have the surgical team electronic pagination system operator call us back. Progress Note #2: Time: 23:00 Progress Note Discussed the case with Dr. Mejia, orthopedic surgeon electronic pagination system operator [facility]. He re commends redressing the wound with gauze and a new Tucker bandage. Follow-up tomorrow during business hours with Dr. Braun's office by phone call and try to get an appointment either this week or next. Departure Impression Primary Impression: Hemorrhage from wound Disposition: 01 HOME, SELF-CARE Condition: Stable Departure-Patient Inst. Decision time for Depature: 23:00 Referrals: QUINTEN RUDOLPH DO (PCP/Family) Primary Care Physician Patient Instructions: Bleeding After Surgery Add. Discharge Instructions: Just keep the wound clean and dressed as before. Tomorrow during business hours call Dr. Braun's office and request a follow-up appointment next available. Return to the ER for having chest pain shortness of air or increasing bleeding from the wound. Continue to drain the Valdez-Retana wound bulbs as instructed. GEOVANNI LAO J Nov 18, 2019 22:23
[2019-11-18 22:27] LABS: BASOPHILS % (AUTO) 0 % (0-10); EOSINOPHILS # (AUTO) 0.4 10^3/uL (0.0-0.3); EOSINOPHILS % (AUTO) 5 % (0-10); HEMATOCRIT 37 % (40-54); HEMOGLOBIN 11.8 g/dL (13.3-17.7); LYMPHOCYTES # (AUTO) 1.9 10^3/uL (1.0-4.0); LYMPHOCYTES % (AUTO) 23 % (12-44); MEAN CORPUSCULAR HEMOGLOBIN 28 pg (25-34); MEAN CORPUSCULAR HGB CONC 32 g/dL (32-36); MEAN CORPUSCULAR VOLUME 87 fL (80-99); MEAN PLATELET VOLUME 9.7 fL (9.0-12.2); MONOCYTES # (AUTO) 0.6 10^3/uL (0.0-1.0); MONOCYTES % (AUTO) 8 % (0-12); NEUTROPHILS # (AUTO) 5.2 10^3/uL (1.8-7.8); NEUTROPHILS % (AUTO) 63 % (42-75); PLATELET COUNT 341 10^3/uL (130-400); WHITE BLOOD COUNT 8.3 10^3/uL (4.3-11.0)
[2019-11-18 22:40] LABS: ALBUMIN 3.8 GM/DL (3.2-4.5); BILIRUBIN,TOTAL 0.4 MG/DL (0.1-1.0); CALCIUM 9.5 MG/DL (8.5-10.1); CREATININE SERUM 1.23 MG/DL (0.60-1.30); TOTAL PROTEIN 6.9 GM/DL (6.4-8.2)
[2019-11-18 23:06] VITALS: BP 105/69
== END 2019-11-18 23:11 | disposition home or self-care (01) ==
LOC: EDUNIT# 22:04 → ER 22:05
DX: L76.22 Postprocedural hemorrhage of skin and subcutaneous tissue following other procedure (principal); E11.40 Type 2 diabetes mellitus with diabetic neuropathy, unspecified; I10 Essential (primary) hypertension; Z85.831 Personal history of malignant neoplasm of soft tissue; Z85.118 Personal history of other malignant neoplasm of bronchus and lung; Z79.82 Long term (current) use of aspirin; Z88.8 Allergy status to other drugs, medicaments and biological substances; Z79.84 Long term (current) use of oral hypoglycemic drugs; Z87.891 Personal history of nicotine dependence
CPT/HCPCS: 36415; 80053; 85025

== ENCOUNTER → 2019-12-07 | Outpatient (CLI) | payer MEDICARE, OTHER ==
[~2019-12-07] MED LIST changes: +CATHETER FLUSH 10 ML SYR IV PRN; +HOLD METFORMIN - RECEIVED CONTRAST 20 ML VIAL IV SCH; +IOHEXOL 350 MG/ML 100 ML (OMNIPAQUE 350) VIAL IV ONE; +NS 100 ML (IVPB) BAG IV ONE
--- NOTE | 2019-12-07 14:22 | Diagnostic Imaging Report ---
PROCEDURE: CT chest, abdomen, and pelvis with contrast. TECHNIQUE: Multiple contiguous axial images were obtained through the chest, abdomen, and pelvis after the administration of intravenous contrast. Auto Exposure Controls were utilized during the CT exam to meet ALARA standards for radiation dose reduction. All CT scans use one or more of the following dose optimizing techniques: automated exposure control, MA and/or KvP adjustment based on patient size and exam type or iterative reconstruction. INDICATION: Sarcoma with metastatic disease to lungs. COMPARISON: 05/24/2019 FINDINGS: No significant hilar adenopathy. No aneurysmal dilatation of the thoracic aorta. Scattered vascular calcifications are present. The heart is borderline enlarged. No pericardial effusion. Small left pleural effusion. No significant right pleural effusion. No pneumothorax. Interval development of innumerable bilateral pulmonary nodules. This includes a 2.4 cm pulmonary nodule within the medial aspect of the left upper lobe and a 3.2 cm bilobed mass within the right lower lobe. An additional 3.2 cm ovoid mass is identified either within the medial aspect of the right lower lobe or within the soft tissues of the inferior aspect of the mediastinum near the azygoesophageal recess. Scattered osseous degenerative changes without acute osseous abnormality. The liver, spleen, and pancreas are unremarkable. Minimal nodularity of the left adrenal gland measuring 7 mm is again identified and stable from the prior examination. The kidneys are unremarkable. The gallbladder is unremarkable. Mild scattered vascular calcifications without aneurysmal dilatation of the abdominal aorta. The urinary bladder is unremarkable. The prostate gland is mildly enlarged. Significant amount of stool is noted throughout the colon. No evidence of bowel obstruction or pneumatosis. No significant adenopathy, free air, or free fluid within the abdomen or pelvis. Grade 1 anterolisthesis of L4 on L5. Scattered osseous degenerative changes without acute osseous abnormality. IMPRESSION: Interval development of innumerable bilateral pulmonary nodules and masses. Findings are consistent with developing metastatic disease. Lesion within the medial aspect of the right lung base is favored to be arising from the lung parenchyma itself, though technically could relate to adenopathy within the mediastinum near the GE junction. Stable 7 mm indeterminant left adrenal gland nodule, unchanged since April 2019. Significant amount of stool throughout the colon likely related to constipation. Dictated by: Dictated on workstation # [id number]
--- NOTE | 2019-12-07 16:04 | Diagnostic Imaging Report ---
EXAM: Nuclear Medicine whole body bone scan. DATE: December 07, 2019. INDICATION: 79-year-old male, history of metastatic disease to the lungs. COMPARISON: Same day CT chest, abdomen, and pelvis of December 07, 2019. May 24, 2019 CT chest, abdomen, and pelvis. TECHNIQUE: 25.4 mCi of technetium labeled MDP radiotracer was administered. Delayed subsequent whole-body bone scan images were subsequently obtained. Additional projections at the level of the right and left proximal femurs and ribs were also obtained and provided. FINDINGS: There is radiotracer uptake associated with the mid and lower thoracic spine which is likely degenerative related. There is no identified radiotracer avid lesion to specifically suggest an osteoblastic bone metastasis. IMPRESSION: No evidence of an osteoblastic bone metastasis. Dictated by: Dictated on workstation # [id number]
== END ==
LOC: CARD 12:00
PROVIDERS: ATTEND Nurse Practitioner Adult Health
DX: C49.21 Malignant neoplasm of connective and soft tissue of right lower limb, including hip (principal); C78.01 Secondary malignant neoplasm of right lung; E27.8 Other specified disorders of adrenal gland; Z20.828 Contact with and (suspected) exposure to other viral communicable diseases
CPT/HCPCS: 71260; 74177; 78306; A9503

== ENCOUNTER → 2020-01-26 | Outpatient (CLI) | payer MEDICARE, OTHER ==
[~2020-01-26] MED LIST changes: -CATHETER FLUSH 10 ML SYR IV PRN; -HOLD METFORMIN - RECEIVED CONTRAST 20 ML VIAL IV SCH; -IOHEXOL 350 MG/ML 100 ML (OMNIPAQUE 350) VIAL IV ONE; -NS 100 ML (IVPB) BAG IV ONE
[2020-01-26 11:28] LABS: CHOLESTEROL 148 MG/DL (< 200); HDL CHOLESTEROL 49 MG/DL (40-60); TRIGLYCERIDES 144 MG/DL (<150); VLDL CHOLESTEROL 29 MG/DL (5-40)
== END ==
LOC: LAB 10:32
PROVIDERS: ATTEND Family Medicine
DX: E11.9 Type 2 diabetes mellitus without complications (principal); E78.5 Hyperlipidemia, unspecified
CPT/HCPCS: 36415; 80061; 83036

== ENCOUNTER 2020-02-23 12:09 | Outpatient (RCR) | payer MEDICARE, OTHER ==
[2019-12-08 10:21] LABS: BASOPHILS % (AUTO) 0 % (0-10); EOSINOPHILS # (AUTO) 0.5 10^3/uL (0.0-0.3); EOSINOPHILS % (AUTO) 5 % (0-10); HEMATOCRIT 36 % (40-54); HEMOGLOBIN 11.6 g/dL (13.3-17.7); LYMPHOCYTES # (AUTO) 1.9 10^3/uL (1.0-4.0); LYMPHOCYTES % (AUTO) 19 % (12-44); MEAN CORPUSCULAR HEMOGLOBIN 28 pg (25-34); MEAN CORPUSCULAR HGB CONC 32 g/dL (32-36); MEAN CORPUSCULAR VOLUME 88 fL (80-99); MEAN PLATELET VOLUME 10.1 fL (9.0-12.2); MONOCYTES # (AUTO) 0.8 10^3/uL (0.0-1.0); MONOCYTES % (AUTO) 8 % (0-12); NEUTROPHILS # (AUTO) 6.8 10^3/uL (1.8-7.8); NEUTROPHILS % (AUTO) 68 % (42-75); PLATELET COUNT 410 10^3/uL (130-400)
[2019-12-08 10:39] LABS: ALANINE AMINOTRANSFERASE 20 U/L (0-55); ALBUMIN 3.9 GM/DL (3.2-4.5); ALKALINE PHOSPHATASE 80 U/L (40-136); BILIRUBIN,TOTAL 0.3 MG/DL (0.1-1.0); BUN/CREATININE RATIO 16; CALCIUM 9.1 MG/DL (8.5-10.1); CARBON DIOXIDE 26 MMOL/L (21-32); CHLORIDE 105 MMOL/L (98-107); CREATININE SERUM 0.82 MG/DL (0.60-1.30); GFR ESTIMATED > 60; GLUCOSE 133 MG/DL (70-105); POTASSIUM 4.1 MMOL/L (3.6-5.0); SODIUM 141 MMOL/L (135-145); TOTAL PROTEIN 6.8 GM/DL (6.4-8.2)
[2019-12-15 11:52] LABS: BASOPHILS % (AUTO) 1 % (0-10); EOSINOPHILS # (AUTO) 0.1 10^3/uL (0.0-0.3); EOSINOPHILS % (AUTO) 3 % (0-10); HEMATOCRIT 37 % (40-54); HEMOGLOBIN 11.9 g/dL (13.3-17.7); LYMPHOCYTES # (AUTO) 0.7 10^3/uL (1.0-4.0); LYMPHOCYTES % (AUTO) 16 % (12-44); MEAN CORPUSCULAR HEMOGLOBIN 28 pg (25-34); MEAN CORPUSCULAR HGB CONC 32 g/dL (32-36); MEAN CORPUSCULAR VOLUME 87 fL (80-99); MEAN PLATELET VOLUME 10.6 fL (9.0-12.2); MONOCYTES % (AUTO) 1 % (0-12); NEUTROPHILS # (AUTO) 3.5 10^3/uL (1.8-7.8); NEUTROPHILS % (AUTO) 79 % (42-75); PLATELET COUNT 240 10^3/uL (130-400); WHITE BLOOD COUNT 4.4 10^3/uL (4.3-11.0)
[2019-12-15 12:09] LABS: BUN/CREATININE RATIO 14; CALCIUM 9.3 MG/DL (8.5-10.1); CARBON DIOXIDE 23 MMOL/L (21-32); CHLORIDE 101 MMOL/L (98-107); CREATININE SERUM 0.79 MG/DL (0.60-1.30); GFR ESTIMATED > 60; GLUCOSE 110 MG/DL (70-105); POTASSIUM 4.2 MMOL/L (3.6-5.0); SODIUM 137 MMOL/L (135-145)
[2019-12-22 11:18] LABS: BASOPHILS % (AUTO) 1 % (0-10); EOSINOPHILS # (AUTO) 0.1 10^3/uL (0.0-0.3); EOSINOPHILS % (AUTO) 3 % (0-10); HEMATOCRIT 35 % (40-54); LYMPHOCYTES # (AUTO) 1.4 10^3/uL (1.0-4.0); LYMPHOCYTES % (AUTO) 71 % (12-44); MEAN CORPUSCULAR HEMOGLOBIN 28 pg (25-34); MEAN CORPUSCULAR HGB CONC 32 g/dL (32-36); MEAN CORPUSCULAR VOLUME 89 fL (80-99); MEAN PLATELET VOLUME 10.3 fL (9.0-12.2); MONOCYTES # (AUTO) 0.3 10^3/uL (0.0-1.0); MONOCYTES % (AUTO) 17 % (0-12); NEUTROPHILS # (AUTO) 0.2 10^3/uL (1.8-7.8); NEUTROPHILS % (AUTO) 9 % (42-75); PLATELET COUNT 265 10^3/uL (130-400)
[2019-12-22 11:41] LABS: BUN/CREATININE RATIO 11; CALCIUM 9.3 MG/DL (8.5-10.1); CARBON DIOXIDE 24 MMOL/L (21-32); CHLORIDE 105 MMOL/L (98-107); CREATININE SERUM 0.91 MG/DL (0.60-1.30); GFR ESTIMATED > 60; GLUCOSE 113 MG/DL (70-105); POTASSIUM 4.6 MMOL/L (3.6-5.0); SODIUM 141 MMOL/L (135-145)
[2019-12-29 10:14] LABS: BASOPHILS # (AUTO) 0.1 10^3/uL (0.0-0.1); BASOPHILS % (AUTO) 1 % (0-10); EOSINOPHILS % (AUTO) 0 % (0-10); HEMATOCRIT 36 % (40-54); HEMOGLOBIN 11.3 g/dL (13.3-17.7); LYMPHOCYTES # (AUTO) 1.8 10^3/uL (1.0-4.0); LYMPHOCYTES % (AUTO) 29 % (12-44); MEAN CORPUSCULAR HEMOGLOBIN 28 pg (25-34); MEAN CORPUSCULAR HGB CONC 32 g/dL (32-36); MEAN CORPUSCULAR VOLUME 88 fL (80-99); MEAN PLATELET VOLUME 9.8 fL (9.0-12.2); MONOCYTES # (AUTO) 1.2 10^3/uL (0.0-1.0); MONOCYTES % (AUTO) 18 % (0-12); NEUTROPHILS % (AUTO) 48 % (42-75); PLATELET COUNT 602 10^3/uL (130-400); WHITE BLOOD COUNT 6.4 10^3/uL (4.3-11.0)
[2019-12-29 10:35] LABS: ALANINE AMINOTRANSFERASE 18 U/L (0-55); ALBUMIN 3.9 GM/DL (3.2-4.5); ALKALINE PHOSPHATASE 102 U/L (40-136); BILIRUBIN,TOTAL 0.3 MG/DL (0.1-1.0); BUN/CREATININE RATIO 11; CALCIUM 9.3 MG/DL (8.5-10.1); CARBON DIOXIDE 25 MMOL/L (21-32); CHLORIDE 106 MMOL/L (98-107); CREATININE SERUM 0.84 MG/DL (0.60-1.30); GFR ESTIMATED > 60; GLUCOSE 116 MG/DL (70-105); POTASSIUM 4.2 MMOL/L (3.6-5.0); SODIUM 142 MMOL/L (135-145); TOTAL PROTEIN 6.5 GM/DL (6.4-8.2)
--- NOTE | 2019-12-29 12:08 | Diagnostic Imaging Report ---
INDICATION: Sarcoma. COMPARISON: 10/21/2019. FINDINGS: Multiple new bilateral lung masses have developed. Given the history, these are presumed multifocal pulmonary metastatic lesions. The largest mass in the left lower lung is 3.7 cm and there are probably at least 15 of these lesions having become apparent. The heart size is within normal limits. The hilar and mediastinal contours are grossly unremarkable. There is a central line via the left subclavian in the lower SVC. IMPRESSION: Adverse change suggesting development of multifocal pulmonary parenchymal metastases. Dictated by: Dictated on workstation # [id number]
[2020-01-05 13:26] LABS: BASOPHILS % (AUTO) 1 % (0-10); EOSINOPHILS % (AUTO) 0 % (0-10); HEMATOCRIT 35 % (40-54); HEMOGLOBIN 11.2 g/dL (13.3-17.7); LYMPHOCYTES # (AUTO) 1.7 10^3/uL (1.0-4.0); LYMPHOCYTES % (AUTO) 21 % (12-44); MEAN CORPUSCULAR HEMOGLOBIN 28 pg (25-34); MEAN CORPUSCULAR HGB CONC 32 g/dL (32-36); MEAN CORPUSCULAR VOLUME 89 fL (80-99); MEAN PLATELET VOLUME 9.7 fL (9.0-12.2); MONOCYTES # (AUTO) 0.1 10^3/uL (0.0-1.0); MONOCYTES % (AUTO) 1 % (0-12); NEUTROPHILS # (AUTO) 6.3 10^3/uL (1.8-7.8); NEUTROPHILS % (AUTO) 77 % (42-75); PLATELET COUNT 397 10^3/uL (130-400); WHITE BLOOD COUNT 8.3 10^3/uL (4.3-11.0)
[2020-01-05 13:44] LABS: BUN/CREATININE RATIO 11; CALCIUM 9.1 MG/DL (8.5-10.1); CARBON DIOXIDE 26 MMOL/L (21-32); CHLORIDE 103 MMOL/L (98-107); CREATININE SERUM 0.91 MG/DL (0.60-1.30); GFR ESTIMATED > 60; GLUCOSE 135 MG/DL (70-105); POTASSIUM 4.3 MMOL/L (3.6-5.0); SODIUM 140 MMOL/L (135-145)
[2020-01-12 08:53] LABS: BASOPHILS % (AUTO) 1 % (0-10); EOSINOPHILS # (AUTO) 0.1 10^3/uL (0.0-0.3); EOSINOPHILS % (AUTO) 2 % (0-10); HEMATOCRIT 37 % (40-54); HEMOGLOBIN 11.7 g/dL (13.3-17.7); LYMPHOCYTES # (AUTO) 1.3 10^3/uL (1.0-4.0); LYMPHOCYTES % (AUTO) 42 % (12-44); MEAN CORPUSCULAR HEMOGLOBIN 28 pg (25-34); MEAN CORPUSCULAR HGB CONC 32 g/dL (32-36); MEAN CORPUSCULAR VOLUME 89 fL (80-99); MEAN PLATELET VOLUME 10.1 fL (9.0-12.2); MONOCYTES # (AUTO) 0.4 10^3/uL (0.0-1.0); MONOCYTES % (AUTO) 13 % (0-12); NEUTROPHILS # (AUTO) 1.3 10^3/uL (1.8-7.8); NEUTROPHILS % (AUTO) 42 % (42-75); PLATELET COUNT 223 10^3/uL (130-400); WHITE BLOOD COUNT 3.1 10^3/uL (4.3-11.0)
[2020-01-12 09:13] LABS: BUN/CREATININE RATIO 11; CALCIUM 9.9 MG/DL (8.5-10.1); CARBON DIOXIDE 22 MMOL/L (21-32); CHLORIDE 105 MMOL/L (98-107); CREATININE SERUM 0.89 MG/DL (0.60-1.30); GFR ESTIMATED > 60; GLUCOSE 135 MG/DL (70-105); POTASSIUM 4.3 MMOL/L (3.6-5.0); SODIUM 142 MMOL/L (135-145)
--- NOTE | 2020-01-19 13:45 | Diagnostic Imaging Report ---
EXAMINATION: Chest 2 views. HISTORY: History of sarcoma with metastatic disease to the lungs. COMPARISON: 12/29/2019. FINDINGS: Focal pulmonary nodules/masses are again seen in the lungs bilaterally, with the dominant lesion in the left lung base appearing slightly decreased in size compared to the prior exam measuring 3.4 cm. No pleural effusion or pneumothorax is seen. The cardiac silhouette is stable. No acute osseous abnormalities. Stable left port. IMPRESSION: 1. Focal pulmonary nodules and masses involving both lungs, consistent with a history of sarcoma with lung metastases. The dominant mass in the left lung base appears slightly decreased in size compared to the prior exam. 2. Stable left port. Dictated by: Dictated on workstation # [id number]
[2020-01-19 13:46] LABS: BASOPHILS # (AUTO) 0.1 10^3/uL (0.0-0.1); BASOPHILS % (AUTO) 1 % (0-10); EOSINOPHILS # (AUTO) 0.1 10^3/uL (0.0-0.3); EOSINOPHILS % (AUTO) 1 % (0-10); HEMATOCRIT 37 % (40-54); HEMOGLOBIN 11.7 g/dL (13.3-17.7); LYMPHOCYTES # (AUTO) 2.3 10^3/uL (1.0-4.0); LYMPHOCYTES % (AUTO) 33 % (12-44); MEAN CORPUSCULAR HEMOGLOBIN 28 pg (25-34); MEAN CORPUSCULAR HGB CONC 32 g/dL (32-36); MEAN CORPUSCULAR VOLUME 88 fL (80-99); MEAN PLATELET VOLUME 9.8 fL (9.0-12.2); MONOCYTES # (AUTO) 1.2 10^3/uL (0.0-1.0); MONOCYTES % (AUTO) 17 % (0-12); NEUTROPHILS # (AUTO) 3.2 10^3/uL (1.8-7.8); NEUTROPHILS % (AUTO) 46 % (42-75); PLATELET COUNT 444 10^3/uL (130-400); WHITE BLOOD COUNT 6.9 10^3/uL (4.3-11.0)
[2020-01-19 14:05] LABS: ALANINE AMINOTRANSFERASE 17 U/L (0-55); ALBUMIN 4.1 GM/DL (3.2-4.5); ALKALINE PHOSPHATASE 89 U/L (40-136); BILIRUBIN,TOTAL 0.3 MG/DL (0.1-1.0); BUN/CREATININE RATIO 10; CALCIUM 9.3 MG/DL (8.5-10.1); CARBON DIOXIDE 23 MMOL/L (21-32); CHLORIDE 104 MMOL/L (98-107); GFR ESTIMATED > 60; GLUCOSE 96 MG/DL (70-105); SODIUM 142 MMOL/L (135-145); TOTAL PROTEIN 6.9 GM/DL (6.4-8.2)
[2020-01-26 10:32] LABS: BASOPHILS % (AUTO) 0 % (0-10); EOSINOPHILS # (AUTO) 0.1 10^3/uL (0.0-0.3); EOSINOPHILS % (AUTO) 1 % (0-10); HEMATOCRIT 37 % (40-54); HEMOGLOBIN 11.7 g/dL (13.3-17.7); LYMPHOCYTES # (AUTO) 1.4 10^3/uL (1.0-4.0); LYMPHOCYTES % (AUTO) 16 % (12-44); MEAN CORPUSCULAR HEMOGLOBIN 28 pg (25-34); MEAN CORPUSCULAR HGB CONC 32 g/dL (32-36); MEAN CORPUSCULAR VOLUME 88 fL (80-99); MEAN PLATELET VOLUME 10.2 fL (9.0-12.2); MONOCYTES % (AUTO) 1 % (0-12); NEUTROPHILS # (AUTO) 7.2 10^3/uL (1.8-7.8); NEUTROPHILS % (AUTO) 82 % (42-75); PLATELET COUNT 362 10^3/uL (130-400); WHITE BLOOD COUNT 8.7 10^3/uL (4.3-11.0)
[2020-01-26 10:53] LABS: BUN/CREATININE RATIO 16; CARBON DIOXIDE 26 MMOL/L (21-32); CHLORIDE 103 MMOL/L (98-107); CREATININE SERUM 0.89 MG/DL (0.60-1.30); GFR ESTIMATED > 60; GLUCOSE 110 MG/DL (70-105); POTASSIUM 4.5 MMOL/L (3.6-5.0); SODIUM 141 MMOL/L (135-145)
[2020-02-02 11:13] LABS: BASOPHILS % (AUTO) 1 % (0-10); EOSINOPHILS # (AUTO) 0.1 10^3/uL (0.0-0.3); EOSINOPHILS % (AUTO) 3 % (0-10); HEMATOCRIT 34 % (40-54); HEMOGLOBIN 10.9 g/dL (13.3-17.7); LYMPHOCYTES # (AUTO) 1.3 10^3/uL (1.0-4.0); LYMPHOCYTES % (AUTO) 48 % (12-44); MEAN CORPUSCULAR HEMOGLOBIN 28 pg (25-34); MEAN CORPUSCULAR HGB CONC 32 g/dL (32-36); MEAN CORPUSCULAR VOLUME 87 fL (80-99); MEAN PLATELET VOLUME 10.1 fL (9.0-12.2); MONOCYTES # (AUTO) 0.4 10^3/uL (0.0-1.0); MONOCYTES % (AUTO) 14 % (0-12); NEUTROPHILS % (AUTO) 34 % (42-75); PLATELET COUNT 228 10^3/uL (130-400); WHITE BLOOD COUNT 2.8 10^3/uL (4.3-11.0)
[2020-02-02 11:37] LABS: BUN/CREATININE RATIO 9; CALCIUM 9.6 MG/DL (8.5-10.1); CARBON DIOXIDE 27 MMOL/L (21-32); CHLORIDE 104 MMOL/L (98-107); CREATININE SERUM 0.85 MG/DL (0.60-1.30); GFR ESTIMATED > 60; GLUCOSE 119 MG/DL (70-105); POTASSIUM 4.1 MMOL/L (3.6-5.0); SODIUM 139 MMOL/L (135-145)
[2020-02-09 13:21] LABS: BASOPHILS % (AUTO) 1 % (0-10); EOSINOPHILS # (AUTO) 0.1 10^3/uL (0.0-0.3); EOSINOPHILS % (AUTO) 1 % (0-10); HEMATOCRIT 37 % (40-54); HEMOGLOBIN 11.6 g/dL (13.3-17.7); LYMPHOCYTES % (AUTO) 35 % (12-44); MEAN CORPUSCULAR HEMOGLOBIN 28 pg (25-34); MEAN CORPUSCULAR HGB CONC 31 g/dL (32-36); MEAN CORPUSCULAR VOLUME 89 fL (80-99); MEAN PLATELET VOLUME 9.9 fL (9.0-12.2); MONOCYTES % (AUTO) 18 % (0-12); NEUTROPHILS # (AUTO) 2.5 10^3/uL (1.8-7.8); NEUTROPHILS % (AUTO) 43 % (42-75); PLATELET COUNT 484 10^3/uL (130-400); WHITE BLOOD COUNT 5.7 10^3/uL (4.3-11.0)
[2020-02-09 13:50] LABS: ALANINE AMINOTRANSFERASE 19 U/L (0-55); ALBUMIN 4.1 GM/DL (3.2-4.5); ALKALINE PHOSPHATASE 86 U/L (40-136); BILIRUBIN,TOTAL 0.4 MG/DL (0.1-1.0); BUN/CREATININE RATIO 8; CALCIUM 9.4 MG/DL (8.5-10.1); CARBON DIOXIDE 24 MMOL/L (21-32); CHLORIDE 104 MMOL/L (98-107); CREATININE SERUM 0.96 MG/DL (0.60-1.30); GFR ESTIMATED > 60; GLUCOSE 157 MG/DL (70-105); POTASSIUM 3.8 MMOL/L (3.6-5.0); SODIUM 140 MMOL/L (135-145); TOTAL PROTEIN 7.1 GM/DL (6.4-8.2)
--- NOTE | 2020-02-09 15:30 | Diagnostic Imaging Report ---
INDICATION: Malignant neoplasm of connective and soft tissue. PA and lateral views of the chest obtained with comparison made study of 01/19/2020. Bilateral pulmonary masses have a similar overall appearance. The largest projects over the left base and measures approximately 3.4 cm in diameter. No significant change is apparent. Left anterior chest wall port remains in stable position. There is no pneumothorax or evidence of significant pleural fluid. Diffuse thoracic spondylosis is noted. IMPRESSION: Stable overall appearance of bilateral pulmonary masses compatible with metastatic disease. Dictated by: Dictated on workstation # [id number]
[2020-02-16 11:30] LABS: BASOPHILS % (AUTO) 0 % (0-10); EOSINOPHILS # (AUTO) 0.1 10^3/uL (0.0-0.3); EOSINOPHILS % (AUTO) 1 % (0-10); HEMATOCRIT 35 % (40-54); HEMOGLOBIN 11.3 g/dL (13.3-17.7); LYMPHOCYTES # (AUTO) 1.5 10^3/uL (1.0-4.0); LYMPHOCYTES % (AUTO) 14 % (12-44); MEAN CORPUSCULAR HEMOGLOBIN 28 pg (25-34); MEAN CORPUSCULAR HGB CONC 32 g/dL (32-36); MEAN CORPUSCULAR VOLUME 88 fL (80-99); MEAN PLATELET VOLUME 10.2 fL (9.0-12.2); MONOCYTES # (AUTO) 0.1 10^3/uL (0.0-1.0); MONOCYTES % (AUTO) 1 % (0-12); NEUTROPHILS # (AUTO) 8.5 10^3/uL (1.8-7.8); NEUTROPHILS % (AUTO) 83 % (42-75); PLATELET COUNT 351 10^3/uL (130-400); WHITE BLOOD COUNT 10.2 10^3/uL (4.3-11.0)
[2020-02-16 11:47] LABS: CHLORIDE 102 MMOL/L (98-107); POTASSIUM 4.5 MMOL/L (3.6-5.0); SODIUM 138 MMOL/L (135-145)
[2020-02-16 11:48] LABS: CALCIUM 9.5 MG/DL (8.5-10.1)
[2020-02-16 11:49] LABS: GLUCOSE 113 MG/DL (70-105)
[2020-02-16 11:50] LABS: CARBON DIOXIDE 24 MMOL/L (21-32)
[2020-02-16 11:53] LABS: GFR ESTIMATED > 60
[2020-02-16 11:54] LABS: BUN/CREATININE RATIO 14
[~2020-02-23 12:09] MED LIST changes: +DOXORUBICIN HCL IV SCH; +FOSAPREPITANT (CANCER CENTER) 150 MG in NS (IVPB) CANCER CENTER ONLY 150 ML IV SCH; +NS IV 1000 ML (CANCER CTR) IV SCH; +NS IV SCH
[2020-02-23 12:31] LABS: BASOPHILS % (AUTO) 1 % (0-10); EOSINOPHILS # (AUTO) 0.1 10^3/uL (0.0-0.3); EOSINOPHILS % (AUTO) 2 % (0-10); HEMATOCRIT 34 % (40-54); HEMOGLOBIN 10.9 g/dL (13.3-17.7); LYMPHOCYTES # (AUTO) 1.2 10^3/uL (1.0-4.0); LYMPHOCYTES % (AUTO) 48 % (12-44); MEAN CORPUSCULAR HEMOGLOBIN 28 pg (25-34); MEAN CORPUSCULAR HGB CONC 32 g/dL (32-36); MEAN CORPUSCULAR VOLUME 86 fL (80-99); MEAN PLATELET VOLUME 9.6 fL (9.0-12.2); MONOCYTES # (AUTO) 0.4 10^3/uL (0.0-1.0); MONOCYTES % (AUTO) 17 % (0-12); NEUTROPHILS # (AUTO) 0.8 10^3/uL (1.8-7.8); NEUTROPHILS % (AUTO) 32 % (42-75); PLATELET COUNT 304 10^3/uL (130-400); WHITE BLOOD COUNT 2.6 10^3/uL (4.3-11.0)
[2020-02-23 12:57] LABS: BUN/CREATININE RATIO 9; CALCIUM 9.6 MG/DL (8.5-10.1); CARBON DIOXIDE 28 MMOL/L (21-32); CHLORIDE 100 MMOL/L (98-107); GFR ESTIMATED > 60; GLUCOSE 152 MG/DL (70-105); SODIUM 137 MMOL/L (135-145)
== END 2020-02-28 15:31 | disposition home or self-care (01) ==
LOC: ONC 12:09
PROVIDERS: ATTEND Internal Medicine Hematology & Oncology
DX: Z51.11 Encounter for antineoplastic chemotherapy (principal); C49.21 Malignant neoplasm of connective and soft tissue of right lower limb, including hip; E11.9 Type 2 diabetes mellitus without complications; I10 Essential (primary) hypertension; E78.5 Hyperlipidemia, unspecified; Z79.899 Other long term (current) drug therapy; Z98.890 Other specified postprocedural states; Z92.3 Personal history of irradiation
CPT/HCPCS: 36591; 71046; 80048; 80053; 83615; 85025; 96367; 96375; 96409

== ENCOUNTER → 2020-02-28 | Outpatient (CLI) | payer MEDICARE, OTHER ==
[~2020-02-28] MED LIST changes: -DOXORUBICIN HCL IV SCH; -FOSAPREPITANT (CANCER CENTER) 150 MG in NS (IVPB) CANCER CENTER ONLY 150 ML IV SCH; +HOLD METFORMIN - RECEIVED CONTRAST 20 ML VIAL IV SCH; +IOHEXOL 350 MG/ML 100 ML (OMNIPAQUE 350) VIAL IV ONE; +NS 100 ML (IVPB) BAG IV ONE; -NS IV 1000 ML (CANCER CTR) IV SCH; -NS IV SCH
[2020-02-28] MEDS: CATHETER FLUSH 10 ML SYR IV PRN ×2 (11:19→12:24)
--- NOTE | 2020-02-28 13:26 | Diagnostic Imaging Report ---
PROCEDURE: CT chest with contrast, CT abdomen and pelvis with and without contrast. TECHNIQUE: Pre and post intravenous contrast axial imaging of the abdomen and pelvis and post contrast axial imaging of the chest were performed. Auto Exposure Controls were utilized during the CT exam to meet ALARA standards for radiation dose reduction. INDICATION: Sarcoma. COMPARISON: 12/07/2019. FINDINGS: CT CHEST: No axillary lymphadenopathy is identified. No definite mediastinal or hilar lymphadenopathy is detected. There is no pericardial fluid. The patient has developed a small left pleural effusion. Numerous pulmonary masses are again noted, consistent with pulmonary metastatic disease. A mass in the left upper lobe medially at the level of the aortic arch measures 3.5 cm. The mass in the superior segment of the right lower lobe measures 2.7 cm compared with 1.4 cm. There are several lesions which are cavitary on today's study. A large cavitary mass in the posterolateral left lower lobe measures 3.5 cm compared with 2.5 cm previously. IMPRESSION: Increase in size of numerous pulmonary masses, consistent with worsening pulmonary metastatic disease. Many of the lesions are now cavitary. There has also been development of a small left pleural effusion with some left basilar atelectasis. CT ABDOMEN AND PELVIS: No discrete liver mass is identified. The gallbladder is unremarkable. No biliary ductal dilatation is seen. The pancreas and spleen are unremarkable. A small left adrenal nodule is stable when measured by the same technique. The right adrenal gland is unremarkable. No renal mass is detected. The aorta is nonaneurysmal. No central retroperitoneal or mesenteric lymphadenopathy is seen. The small and large bowel loops are of normal caliber. There is a large amount of stool throughout the colon, consistent with constipation. The small bowel is nondilated. There is no free fluid or fluid collection. The bladder and prostate are unremarkable. No definite pelvic lymphadenopathy is seen. The bony structures are nonacute. IMPRESSION: Stable left adrenal nodule. No abdominal or pelvic lymphadenopathy is seen. There is moderate stool in the colon, consistent with constipation. Dictated by: Dictated on workstation # [id number]
--- NOTE | 2020-02-28 15:26 | Diagnostic Imaging Report ---
INDICATION: Malignant neoplasm. TECHNIQUE: The patient was administered 27.2 mCi of technetium 99m MDP intravenously and whole-body imaging was performed after a 3 hour delay. COMPARISON: Correlation is made with the prior bone scan from 12/07/2019. FINDINGS: Normal uptake of activity by the axial and appendicular skeleton is noted. There is uptake by the kidneys with excretion into the urinary bladder. Mild uptake in the lower thoracic spine is noted and likely degenerative. There is some uptake in bilateral shoulders which is likely degenerative. No focus is seen to suggest osseous metastatic disease. IMPRESSION: Continued stable whole body bone scan. There is no scintigraphic evidence of osseous metastatic disease. Dictated by: Dictated on workstation # [id number]
== END ==
LOC: CARD 11:00
PROVIDERS: ATTEND Nurse Practitioner Adult Health
DX: Z51.11 Encounter for antineoplastic chemotherapy (principal); C40.21 Malignant neoplasm of long bones of right lower limb; C78.00 Secondary malignant neoplasm of unspecified lung; I08.1 Rheumatic disorders of both mitral and tricuspid valves; T46.90 Poisoning by, adverse effect of and underdosing of unspecified agents primarily affecting the cardiovascular system; E27.8 Other specified disorders of adrenal gland; K59.00 Constipation, unspecified; Z79.899 Other long term (current) drug therapy
CPT/HCPCS: 71260; 74178; 78306; 93306; A9503

== ENCOUNTER → 2020-03-22 | Outpatient (CLI) | payer MEDICARE, OTHER ==
[~2020-03-22] MED LIST changes: -HOLD METFORMIN - RECEIVED CONTRAST 20 ML VIAL IV SCH; -IOHEXOL 350 MG/ML 100 ML (OMNIPAQUE 350) VIAL IV ONE; -NS 100 ML (IVPB) BAG IV ONE; +NS IV 1000 ML (CANCER CTR) 1,000 ML ONE
--- NOTE | 2020-03-22 12:31 | Diagnostic Imaging Report ---
INDICATION: Lung neoplasm. TIME OF EXAM: 12:11 p.m. COMPARISON: Correlation is made with prior chest from 02/09/2020. FINDINGS: Heart size is stable. Rounded mass adjacent to the right hilum has increased in size. Previously noted mass in the left base is now obscured due to significant consolidation in the left base as well as development of a aijizjsw-zl-ovvvz left effusion. There is a left chest wall port with tip overlying the SVC. No pneumothorax is seen. There does appear to be a rounded mass in the right upper chest, not seen on prior exam. IMPRESSION: Enlarging right perihilar mass. There is also apparent mass in the right upper lobe. Left basilar mass is not well seen due to patient developing left basilar consolidation and moderate left effusion. Dictated by: Dictated on workstation # [id number]
== END ==
LOC: ONC 10:34
PROVIDERS: ATTEND Nurse Practitioner Adult Health
DX: C78.01 Secondary malignant neoplasm of right lung (principal); C78.02 Secondary malignant neoplasm of left lung
CPT/HCPCS: 71046

== ENCOUNTER 2020-05-24 08:47 | Outpatient (RCR) | payer MEDICARE, OTHER ==
[2020-03-01 09:56] LABS: BASOPHILS # (AUTO) 0.1 10^3/uL (0.0-0.1); BASOPHILS % (AUTO) 1 % (0-10); EOSINOPHILS # (AUTO) 0.1 10^3/uL (0.0-0.3); EOSINOPHILS % (AUTO) 1 % (0-10); HEMATOCRIT 34 % (40-54); HEMOGLOBIN 10.8 g/dL (13.3-17.7); LYMPHOCYTES # (AUTO) 1.8 10^3/uL (1.0-4.0); LYMPHOCYTES % (AUTO) 21 % (12-44); MEAN CORPUSCULAR HEMOGLOBIN 27 pg (25-34); MEAN CORPUSCULAR HGB CONC 32 g/dL (32-36); MEAN CORPUSCULAR VOLUME 86 fL (80-99); MEAN PLATELET VOLUME 9.3 fL (9.0-12.2); MONOCYTES # (AUTO) 1.2 10^3/uL (0.0-1.0); MONOCYTES % (AUTO) 14 % (0-12); NEUTROPHILS # (AUTO) 5.1 10^3/uL (1.8-7.8); NEUTROPHILS % (AUTO) 59 % (42-75); PLATELET COUNT 605 10^3/uL (130-400); WHITE BLOOD COUNT 8.6 10^3/uL (4.3-11.0)
[2020-03-01 10:16] LABS: ALANINE AMINOTRANSFERASE 18 U/L (0-55); ALBUMIN 3.9 GM/DL (3.2-4.5); ALKALINE PHOSPHATASE 93 U/L (40-136); BILIRUBIN,TOTAL 0.2 MG/DL (0.1-1.0); BUN/CREATININE RATIO 12; CALCIUM 9.6 MG/DL (8.5-10.1); CARBON DIOXIDE 25 MMOL/L (21-32); CHLORIDE 103 MMOL/L (98-107); CREATININE SERUM 0.84 MG/DL (0.60-1.30); GFR ESTIMATED > 60; GLUCOSE 126 MG/DL (70-105); POTASSIUM 4.1 MMOL/L (3.6-5.0); SODIUM 140 MMOL/L (135-145)
[2020-03-20 10:40] LABS: BASOPHILS # (AUTO) 0.1 10^3/uL (0.0-0.1); BASOPHILS % (AUTO) 1 % (0-10); EOSINOPHILS # (AUTO) 0.3 10^3/uL (0.0-0.3); EOSINOPHILS % (AUTO) 3 % (0-10); HEMATOCRIT 33 % (40-54); HEMOGLOBIN 10.5 g/dL (13.3-17.7); LYMPHOCYTES # (AUTO) 1.4 10^3/uL (1.0-4.0); LYMPHOCYTES % (AUTO) 13 % (12-44); MEAN CORPUSCULAR HEMOGLOBIN 26 pg (25-34); MEAN CORPUSCULAR HGB CONC 32 g/dL (32-36); MEAN CORPUSCULAR VOLUME 83 fL (80-99); MEAN PLATELET VOLUME 8.9 fL (9.0-12.2); MONOCYTES % (AUTO) 10 % (0-12); NEUTROPHILS # (AUTO) 7.5 10^3/uL (1.8-7.8); NEUTROPHILS % (AUTO) 72 % (42-75); PLATELET COUNT 437 10^3/uL (130-400); WHITE BLOOD COUNT 10.3 10^3/uL (4.3-11.0)
[2020-03-20 11:00] LABS: ALANINE AMINOTRANSFERASE 21 U/L (0-55); ALBUMIN 3.6 GM/DL (3.2-4.5); ALKALINE PHOSPHATASE 140 U/L (40-136); BILIRUBIN,TOTAL 0.5 MG/DL (0.1-1.0); BUN/CREATININE RATIO 12; CALCIUM 9.8 MG/DL (8.5-10.1); CARBON DIOXIDE 22 MMOL/L (21-32); CHLORIDE 99 MMOL/L (98-107); CREATININE SERUM 0.81 MG/DL (0.60-1.30); GFR ESTIMATED > 60; GLUCOSE 125 MG/DL (70-105); POTASSIUM 3.9 MMOL/L (3.6-5.0); SODIUM 138 MMOL/L (135-145)
[2020-03-29 09:09] LABS: BASOPHILS % (AUTO) 0 % (0-10); EOSINOPHILS % (AUTO) 0 % (0-10); HEMATOCRIT 32 % (40-54); HEMOGLOBIN 10.1 g/dL (13.3-17.7); LYMPHOCYTES # (AUTO) 1.4 10^3/uL (1.0-4.0); LYMPHOCYTES % (AUTO) 12 % (12-44); MEAN CORPUSCULAR HEMOGLOBIN 26 pg (25-34); MEAN CORPUSCULAR HGB CONC 32 g/dL (32-36); MEAN CORPUSCULAR VOLUME 83 fL (80-99); MEAN PLATELET VOLUME 8.6 fL (9.0-12.2); MONOCYTES # (AUTO) 0.6 10^3/uL (0.0-1.0); MONOCYTES % (AUTO) 5 % (0-12); NEUTROPHILS # (AUTO) 8.9 10^3/uL (1.8-7.8); NEUTROPHILS % (AUTO) 81 % (42-75); PLATELET COUNT 381 10^3/uL (130-400)
[2020-03-29 09:27] LABS: BUN/CREATININE RATIO 17; CARBON DIOXIDE 21 MMOL/L (21-32); CHLORIDE 102 MMOL/L (98-107); GFR ESTIMATED > 60; GLUCOSE 154 MG/DL (70-105); POTASSIUM 4.2 MMOL/L (3.6-5.0); SODIUM 141 MMOL/L (135-145)
[2020-04-05 09:15] LABS: BASOPHILS % (AUTO) 0 % (0-10); EOSINOPHILS # (AUTO) 0.1 10^3/uL (0.0-0.3); EOSINOPHILS % (AUTO) 3 % (0-10); HEMATOCRIT 32 % (40-54); HEMOGLOBIN 10.1 g/dL (13.3-17.7); LYMPHOCYTES # (AUTO) 1.2 10^3/uL (1.0-4.0); LYMPHOCYTES % (AUTO) 49 % (12-44); MEAN CORPUSCULAR HEMOGLOBIN 27 pg (25-34); MEAN CORPUSCULAR HGB CONC 32 g/dL (32-36); MEAN CORPUSCULAR VOLUME 83 fL (80-99); MEAN PLATELET VOLUME 9.1 fL (9.0-12.2); MONOCYTES # (AUTO) 0.4 10^3/uL (0.0-1.0); MONOCYTES % (AUTO) 17 % (0-12); NEUTROPHILS # (AUTO) 0.8 10^3/uL (1.8-7.8); NEUTROPHILS % (AUTO) 31 % (42-75); PLATELET COUNT 170 10^3/uL (130-400); WHITE BLOOD COUNT 2.4 10^3/uL (4.3-11.0)
[2020-04-05 09:32] LABS: BUN/CREATININE RATIO 12; CALCIUM 9.5 MG/DL (8.5-10.1); CARBON DIOXIDE 25 MMOL/L (21-32); CHLORIDE 100 MMOL/L (98-107); CREATININE SERUM 0.82 MG/DL (0.60-1.30); GFR ESTIMATED > 60; GLUCOSE 136 MG/DL (70-105); POTASSIUM 4.2 MMOL/L (3.6-5.0); SODIUM 138 MMOL/L (135-145)
--- NOTE | 2020-04-12 09:50 | Diagnostic Imaging Report ---
INDICATION: Lung cancer. COMPARISON: 03/22/2020. FINDINGS: Moderate left pleural effusion remains present. The large right perihilar mass is unchanged. Vague density in the right upper lung is unchanged. Right lung is well aerated. The heart is not enlarged. Port-A-Cath on the left remains in good position. No bony lesions demonstrated. IMPRESSION: No appreciable change has occurred since previous exam. Moderate left pleural effusion with lung mass is again noted. Dictated by: Dictated on workstation # [id number]
[2020-04-12 09:58] LABS: BASOPHILS % (AUTO) 1 % (0-10); EOSINOPHILS % (AUTO) 0 % (0-10); HEMATOCRIT 32 % (40-54); LYMPHOCYTES % (AUTO) 34 % (12-44); MEAN CORPUSCULAR HEMOGLOBIN 26 pg (25-34); MEAN CORPUSCULAR HGB CONC 31 g/dL (32-36); MEAN CORPUSCULAR VOLUME 84 fL (80-99); MEAN PLATELET VOLUME 9.2 fL (9.0-12.2); MONOCYTES # (AUTO) 1.2 10^3/uL (0.0-1.0); MONOCYTES % (AUTO) 20 % (0-12); NEUTROPHILS # (AUTO) 2.6 10^3/uL (1.8-7.8); NEUTROPHILS % (AUTO) 44 % (42-75); PLATELET COUNT 790 10^3/uL (130-400); WHITE BLOOD COUNT 5.9 10^3/uL (4.3-11.0)
[2020-04-12 10:16] LABS: ALANINE AMINOTRANSFERASE 34 U/L (0-55); ALBUMIN 3.6 GM/DL (3.2-4.5); ALKALINE PHOSPHATASE 181 U/L (40-136); BILIRUBIN,TOTAL 0.4 MG/DL (0.1-1.0); BUN/CREATININE RATIO 13; CALCIUM 9.7 MG/DL (8.5-10.1); CARBON DIOXIDE 26 MMOL/L (21-32); CHLORIDE 103 MMOL/L (98-107); GFR ESTIMATED > 60; GLUCOSE 116 MG/DL (70-105); POTASSIUM 4.1 MMOL/L (3.6-5.0); SODIUM 142 MMOL/L (135-145)
[2020-04-19 10:20] LABS: BASOPHILS % (AUTO) 0 % (0-10); EOSINOPHILS % (AUTO) 0 % (0-10); HEMATOCRIT 31 % (40-54); HEMOGLOBIN 9.5 g/dL (13.3-17.7); LYMPHOCYTES % (AUTO) 13 % (12-44); MEAN CORPUSCULAR HEMOGLOBIN 26 pg (25-34); MEAN CORPUSCULAR HGB CONC 31 g/dL (32-36); MEAN CORPUSCULAR VOLUME 84 fL (80-99); MEAN PLATELET VOLUME 9.5 fL (9.0-12.2); MONOCYTES # (AUTO) 1.3 10^3/uL (0.0-1.0); MONOCYTES % (AUTO) 8 % (0-12); NEUTROPHILS % (AUTO) 75 % (42-75); PLATELET COUNT 582 10^3/uL (130-400)
[2020-04-19 10:34] LABS: BUN/CREATININE RATIO 12; CALCIUM 9.4 MG/DL (8.5-10.1); CARBON DIOXIDE 21 MMOL/L (21-32); CHLORIDE 105 MMOL/L (98-107); CREATININE SERUM 0.85 MG/DL (0.60-1.30); GFR ESTIMATED > 60; GLUCOSE 122 MG/DL (70-105); POTASSIUM 3.9 MMOL/L (3.6-5.0); SODIUM 141 MMOL/L (135-145)
[2020-04-26 10:57] LABS: BASOPHILS % (AUTO) 1 % (0-10); EOSINOPHILS % (AUTO) 2 % (0-10); HEMATOCRIT 31 % (40-54); HEMOGLOBIN 9.6 g/dL (13.3-17.7); LYMPHOCYTES # (AUTO) 1.1 10^3/uL (1.0-4.0); LYMPHOCYTES % (AUTO) 56 % (12-44); MEAN CORPUSCULAR HEMOGLOBIN 26 pg (25-34); MEAN CORPUSCULAR HGB CONC 31 g/dL (32-36); MEAN CORPUSCULAR VOLUME 84 fL (80-99); MEAN PLATELET VOLUME 9.7 fL (9.0-12.2); MONOCYTES # (AUTO) 0.2 10^3/uL (0.0-1.0); MONOCYTES % (AUTO) 11 % (0-12); NEUTROPHILS # (AUTO) 0.6 10^3/uL (1.8-7.8); NEUTROPHILS % (AUTO) 31 % (42-75); PLATELET COUNT 159 10^3/uL (130-400)
[2020-04-26 11:15] LABS: BUN/CREATININE RATIO 11; CALCIUM 9.6 MG/DL (8.5-10.1); CARBON DIOXIDE 24 MMOL/L (21-32); CHLORIDE 102 MMOL/L (98-107); CREATININE SERUM 0.84 MG/DL (0.60-1.30); GFR ESTIMATED > 60; GLUCOSE 127 MG/DL (70-105); POTASSIUM 4.7 MMOL/L (3.6-5.0); SODIUM 138 MMOL/L (135-145)
[2020-05-04 14:56] LABS: BASOPHILS # (AUTO) 0.1 10^3/uL (0.0-0.1); BASOPHILS % (AUTO) 1 % (0-10); EOSINOPHILS # (AUTO) 0.1 10^3/uL (0.0-0.3); EOSINOPHILS % (AUTO) 1 % (0-10); HEMATOCRIT 32 % (40-54); HEMOGLOBIN 9.8 g/dL (13.3-17.7); LYMPHOCYTES # (AUTO) 1.9 10^3/uL (1.0-4.0); LYMPHOCYTES % (AUTO) 34 % (12-44); MEAN CORPUSCULAR HEMOGLOBIN 26 pg (25-34); MEAN CORPUSCULAR HGB CONC 30 g/dL (32-36); MEAN CORPUSCULAR VOLUME 84 fL (80-99); MEAN PLATELET VOLUME 9.3 fL (9.0-12.2); MONOCYTES # (AUTO) 1.1 10^3/uL (0.0-1.0); MONOCYTES % (AUTO) 21 % (0-12); NEUTROPHILS # (AUTO) 2.3 10^3/uL (1.8-7.8); NEUTROPHILS % (AUTO) 41 % (42-75); PLATELET COUNT 604 10^3/uL (130-400); WHITE BLOOD COUNT 5.5 10^3/uL (4.3-11.0)
[2020-05-04 15:03] LABS: ALBUMIN 3.7 GM/DL (3.2-4.5)
[2020-05-04 15:04] LABS: CHLORIDE 104 MMOL/L (98-107); POTASSIUM 4.2 MMOL/L (3.6-5.0); SODIUM 140 MMOL/L (135-145)
[2020-05-04 15:05] LABS: CALCIUM 9.3 MG/DL (8.5-10.1)
[2020-05-04 15:06] LABS: GLUCOSE 104 MG/DL (70-105); TOTAL PROTEIN 6.8 GM/DL (6.4-8.2)
[2020-05-04 15:07] LABS: CARBON DIOXIDE 24 MMOL/L (21-32)
[2020-05-04 15:08] LABS: BILIRUBIN,TOTAL 0.4 MG/DL (0.1-1.0)
[2020-05-04 15:09] LABS: ALKALINE PHOSPHATASE 127 U/L (40-136)
[2020-05-04 15:10] LABS: CREATININE SERUM 0.91 MG/DL (0.60-1.30); GFR ESTIMATED > 60
[2020-05-04 15:11] LABS: BUN/CREATININE RATIO 11
[2020-05-04 15:12] LABS: ALANINE AMINOTRANSFERASE 25 U/L (0-55)
--- NOTE | 2020-05-04 16:35 | Diagnostic Imaging Report ---
INDICATION: Lung neoplasm, follow-up. TIME OF EXAM: 2:25 PM CORRELATION is made with prior chest 04/12/2020. Left chest wall port has tip overlying the SVC. Loculated pleural fluid left base along the lower left chest wall is unchanged. Rounded density just lateral to right hilum is noted and contains an air-fluid level. This could represent a cavitary lesion. No other lesions are seen. There is no pneumothorax. IMPRESSION: Stable left-sided effusion. There is now an air-fluid level in the mass just lateral to the right hilar hilum consistent with some cavitation. Report faxed to Infection Control at 4:35 PM 05/04/2020/cb Dictated by: Dictated on workstation # [id number]
[2020-05-10 09:07] LABS: BASOPHILS # (AUTO) 0.1 10^3/uL (0.0-0.1); BASOPHILS % (AUTO) 0 % (0-10); EOSINOPHILS % (AUTO) 0 % (0-10); HEMATOCRIT 32 % (40-54); LYMPHOCYTES # (AUTO) 1.6 10^3/uL (1.0-4.0); LYMPHOCYTES % (AUTO) 10 % (12-44); MEAN CORPUSCULAR HEMOGLOBIN 27 pg (25-34); MEAN CORPUSCULAR HGB CONC 32 g/dL (32-36); MEAN CORPUSCULAR VOLUME 84 fL (80-99); MEAN PLATELET VOLUME 8.9 fL (9.0-12.2); MONOCYTES # (AUTO) 0.4 10^3/uL (0.0-1.0); MONOCYTES % (AUTO) 3 % (0-12); NEUTROPHILS # (AUTO) 13.6 10^3/uL (1.8-7.8); NEUTROPHILS % (AUTO) 83 % (42-75); PLATELET COUNT 604 10^3/uL (130-400); WHITE BLOOD COUNT 16.4 10^3/uL (4.3-11.0)
[2020-05-10 09:39] LABS: BUN/CREATININE RATIO 16; CALCIUM 9.7 MG/DL (8.5-10.1); CARBON DIOXIDE 21 MMOL/L (21-32); CHLORIDE 102 MMOL/L (98-107); GFR ESTIMATED > 60; GLUCOSE 135 MG/DL (70-105); POTASSIUM 4.3 MMOL/L (3.6-5.0); SODIUM 139 MMOL/L (135-145)
[2020-05-17 11:38] LABS: BASOPHILS % (AUTO) 1 % (0-10); EOSINOPHILS % (AUTO) 1 % (0-10); HEMATOCRIT 31 % (40-54); HEMOGLOBIN 9.8 g/dL (13.3-17.7); LYMPHOCYTES # (AUTO) 1.1 10^3/uL (1.0-4.0); LYMPHOCYTES % (AUTO) 30 % (12-44); MEAN CORPUSCULAR HEMOGLOBIN 26 pg (25-34); MEAN CORPUSCULAR HGB CONC 31 g/dL (32-36); MEAN CORPUSCULAR VOLUME 83 fL (80-99); MONOCYTES # (AUTO) 0.3 10^3/uL (0.0-1.0); MONOCYTES % (AUTO) 8 % (0-12); NEUTROPHILS # (AUTO) 2.2 10^3/uL (1.8-7.8); NEUTROPHILS % (AUTO) 59 % (42-75); PLATELET COUNT 147 10^3/uL (130-400); WHITE BLOOD COUNT 3.7 10^3/uL (4.3-11.0)
[2020-05-17 12:02] LABS: BUN/CREATININE RATIO 12; CALCIUM 9.3 MG/DL (8.5-10.1); CARBON DIOXIDE 25 MMOL/L (21-32); CHLORIDE 99 MMOL/L (98-107); CREATININE SERUM 0.82 MG/DL (0.60-1.30); GFR ESTIMATED > 60; GLUCOSE 110 MG/DL (70-105); POTASSIUM 4.5 MMOL/L (3.6-5.0); SODIUM 136 MMOL/L (135-145)
[~2020-05-24 08:47] MED LIST changes: +DOXORUBICIN HCL IV SCH; +FAMOTIDINE 20MG/2ML IV (CANCER CTR) IV SCH; +FOSAPREPITANT (CANCER CENTER) 150 MG in NS (IVPB) CANCER CENTER ONLY 150 ML IV SCH; +GEMCITABINE HCL 1 GM, GEMCITABINE HCL 300 MG in NS (IVPB) CANCER CENTER 100 ML IV SCH; -NS IV 1000 ML (CANCER CTR) 1,000 ML ONE; +NS IV 1000 ML (CANCER CTR) IV SCH; +NS IV SCH; +diphenhydrAMINE 25 MG TAB (BENADRYL) CANCER CENTER PO ONE; +diphenhydrAMINE 50 MG/ML INJ (CANCER CENTER) IV PRN
[2020-05-24 09:13] LABS: BASOPHILS % (AUTO) 1 % (0-10); EOSINOPHILS # (AUTO) 0.1 10^3/uL (0.0-0.3); EOSINOPHILS % (AUTO) 1 % (0-10); HEMATOCRIT 32 % (40-54); HEMOGLOBIN 9.7 g/dL (13.3-17.7); LYMPHOCYTES # (AUTO) 1.7 10^3/uL (1.0-4.0); LYMPHOCYTES % (AUTO) 33 % (12-44); MEAN CORPUSCULAR HEMOGLOBIN 26 pg (25-34); MEAN CORPUSCULAR HGB CONC 30 g/dL (32-36); MEAN CORPUSCULAR VOLUME 85 fL (80-99); MEAN PLATELET VOLUME 9.5 fL (9.0-12.2); MONOCYTES # (AUTO) 1.2 10^3/uL (0.0-1.0); MONOCYTES % (AUTO) 23 % (0-12); NEUTROPHILS # (AUTO) 2.1 10^3/uL (1.8-7.8); NEUTROPHILS % (AUTO) 41 % (42-75); PLATELET COUNT 575 10^3/uL (130-400); WHITE BLOOD COUNT 5.1 10^3/uL (4.3-11.0)
[2020-05-24 09:32] LABS: ALANINE AMINOTRANSFERASE 19 U/L (0-55); ALBUMIN 3.4 GM/DL (3.2-4.5); ALKALINE PHOSPHATASE 104 U/L (40-136); BILIRUBIN,TOTAL 0.3 MG/DL (0.1-1.0); BUN/CREATININE RATIO 10; CALCIUM 8.8 MG/DL (8.5-10.1); CARBON DIOXIDE 22 MMOL/L (21-32); CHLORIDE 107 MMOL/L (98-107); CREATININE SERUM 0.77 MG/DL (0.60-1.30); GFR ESTIMATED > 60; GLUCOSE 128 MG/DL (70-105); SODIUM 141 MMOL/L (135-145); TOTAL PROTEIN 6.2 GM/DL (6.4-8.2)
== END 2020-05-30 | disposition home or self-care (01) ==
LOC: ONC 08:47
PROVIDERS: ATTEND Internal Medicine Hematology & Oncology
DX: Z51.11 Encounter for antineoplastic chemotherapy (principal); C49.21 Malignant neoplasm of connective and soft tissue of right lower limb, including hip; E11.9 Type 2 diabetes mellitus without complications; I10 Essential (primary) hypertension; E78.5 Hyperlipidemia, unspecified; Z79.899 Other long term (current) drug therapy; Z98.890 Other specified postprocedural states; Z92.3 Personal history of irradiation
CPT/HCPCS: 80053; 85025; G0463; 36591; 71046; 80048; 96367; 96375; 96413; 96417; 99213

== ENCOUNTER → 2020-06-12 | Outpatient (CLI) | payer MEDICARE, OTHER ==
[~2020-06-12] MED LIST changes: +BARIUM SUSPENSION 2.1% (VANILLA SILQ) 450 ML PO ONE; -DOXORUBICIN HCL IV SCH; -FAMOTIDINE 20MG/2ML IV (CANCER CTR) IV SCH; -FOSAPREPITANT (CANCER CENTER) 150 MG in NS (IVPB) CANCER CENTER ONLY 150 ML IV SCH; -GEMCITABINE HCL 1 GM, GEMCITABINE HCL 300 MG in NS (IVPB) CANCER CENTER 100 ML IV SCH; +HOLD METFORMIN - RECEIVED CONTRAST 20 ML VIAL IV SCH; +IOHEXOL 350 MG/ML 100 ML (OMNIPAQUE 350) VIAL IV ONE; +NS 100 ML (IVPB) BAG IV ONE; -NS IV 1000 ML (CANCER CTR) IV SCH; -NS IV SCH; -diphenhydrAMINE 25 MG TAB (BENADRYL) CANCER CENTER PO ONE; -diphenhydrAMINE 50 MG/ML INJ (CANCER CENTER) IV PRN
[2020-06-12] MEDS: CATHETER FLUSH 10 ML SYR IV PRN ×2 (11:27→11:48)
--- NOTE | 2020-06-12 13:46 | Diagnostic Imaging Report ---
PROCEDURE: CT chest with contrast, CT abdomen and pelvis with and without contrast. TECHNIQUE: Pre and post intravenous contrast axial imaging of the abdomen and pelvis and post contrast axial imaging of the chest were performed. Auto Exposure Controls were utilized during the CT exam to meet ALARA standards for radiation dose reduction. 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 COMPARISON: Comparison is made with prior CT from 02/28/2020. FINDINGS: CT chest: No axillary lymphadenopathy is detected. No mediastinal or hilar lymphadenopathy is detected. No pericardial fluid is seen. There has been an increase in size of left basilar effusion which now appears to be partially loculated. Numerous pulmonary masses with cavitation are again noted. Left upper lobe mass at the level of aortic arch measures 3.3 cm compared with 3.5 cm on prior. Mass in the superior segment of right lower lobe measures 3.0 cm compared with 2.7 cm. The marker lesion in the left lower lobe is more difficult to visualize on today's study due to increasing parenchymal consolidation in this region. Several lesions appear smaller when compared with prior exam and several lesions are larger. A lesion in the medial aspect of the right lower lobe measures 2.8 cm compared with 1.7 cm. A lesion posterior to this in the inferior right lobe measures 1.4 cm compared with 3.2 cm. IMPRESSION: 1. No thoracic lymphadenopathy is detected. 2. Increase in left basilar pleural effusion which now appears to be partially loculated. 3. Numerous bilateral pulmonary masses, many of which are cavitary and again consistent with pulmonary metastatic disease. 4. Mixed findings in the lesions is noted were with some increase and some decrease in size. CT abdomen and pelvis: No discrete liver mass is identified. Gallbladder is unremarkable. There is no biliary ductal dilatation. The pancreas and spleen are unremarkable. Right adrenal glands are unremarkable. A small nodule involving the lateral limb of the left adrenal gland is stable at 11 mm compared with 13 mm on prior. The kidneys are unremarkable. Aorta is nonaneurysmal. No central retroperitoneal or mesenteric lymphadenopathy is seen. No definite iliac or inguinal lymphadenopathy is identified. Bladder is decompressed. Prostate is unremarkable. Small and large bowel loops are normal caliber. There is no obstruction. Moderate stool in the colon is again noted. Bony structures are unremarkable. IMPRESSION: Stable CT abdomen and pelvis since exam from 02/28/2020. Left adrenal nodule is stable. No abdominal or pelvic lymphadenopathy is detected. Dictated by: Dictated on workstation # [id number]
--- NOTE | 2020-06-12 17:47 | Diagnostic Imaging Report ---
INDICATION: Malignant neoplasm of connective tissue. TECHNIQUE: Patient was administered 20.1 mCi technetium 99m MDP intravenously and whole body imaging was performed after a three-hour delay. COMPARISON: Correlation is made with prior whole body bone scan from 02/28/2020. FINDINGS: Bone scan remains stable and unremarkable. There is no abnormal uptake to suggest osseous metastatic disease. Normal uptake by the kidneys with excretion into the urinary bladder is noted. IMPRESSION: Stable whole body bone scan with no scintigraphic evidence of osseous metastatic disease. Dictated by: Dictated on workstation # [id number]
== END ==
LOC: CARD 10:52
PROVIDERS: ATTEND Nurse Practitioner Adult Health
DX: C40.21 Malignant neoplasm of long bones of right lower limb (principal); C78.00 Secondary malignant neoplasm of unspecified lung; J90 Pleural effusion, not elsewhere classified; E27.8 Other specified disorders of adrenal gland; R91.8 Other nonspecific abnormal finding of lung field
CPT/HCPCS: 71260; 74178; 78306; A9503

== ENCOUNTER 2020-06-15 12:20 | Outpatient (CLI) | payer MEDICARE, OTHER ==
[~2020-06-15] VITALS: Ht 167 cm; Wt 114.0 kg
[~2020-06-15 12:20] MED LIST changes: -BARIUM SUSPENSION 2.1% (VANILLA SILQ) 450 ML PO ONE; -HOLD METFORMIN - RECEIVED CONTRAST 20 ML VIAL IV SCH; -IOHEXOL 350 MG/ML 100 ML (OMNIPAQUE 350) VIAL IV ONE; -NS 100 ML (IVPB) BAG IV ONE
[2020-06-15 12:53] VITALS: BP 113/68
[2020-06-15 12:57] LABS: HEMOGLOBIN 10.1 g/dL (13.3-17.7); MEAN PLATELET VOLUME 9.4 fL (9.0-12.2); WHITE BLOOD COUNT 9.2 10^3/uL (4.3-11.0)
[2020-06-15 13:17] LABS: INR 1.1 (0.8-1.4); PROTHROMBIN TIME PATIENT 14.4 SEC (12.2-14.7)
[2020-06-15] MEDS ORDERED: fentaNYL INJ 100 MCG/2 ML AMP IVP ONE (13:30)
[2020-06-15] MEDS ORDERED: MIDAZOLAM 2 MG/2 ML (VERSED) VIAL IVP ONE (13:30)
[2020-06-15] MEDS ORDERED: LIDOCAINE 1% INJ 20 ML 20 ML VIAL INJ ONE (13:30)
[2020-06-15 14:10] VITALS: BP 126/62
[2020-06-15 14:15] VITALS: BP 121/83
[2020-06-15 14:20] VITALS: BP 120/74
[2020-06-15 14:25] VITALS: BP 126/63
[2020-06-15 15:10] VITALS: BP 134/77
--- NOTE | 2020-06-15 16:32 | Pre-Op Note & Conscious Sedat ---
Pre-Operative Progress Note H&P Reviewed The H&P was reviewed, patient examined and no changes noted. Date H&P Reviewed: Jun 15, 2020 Time H&P Reviewed: 13:00 Pre-Op Diagnosis: pleural effusion Conscious Sedation Pre-Proced Time 13:00 ASA Score 2 For ASA 3 and 4: Consider anesthesia and medical clearance. Also, for patients with a history of failed moderate sedation consider anesthesia. Airway Lungs Heart ASA score ASA 1: a normal healthy patient ASA 2: a patient with a mild systemic disease (mid diabetes, controlled hypertension, obesity ASA 3: a patient with a severe systemic disease that limits activity (angina, COPD, prior Myocardial infarction) ASA 4: a patient with an incapacitating disease that is a constant threat to life (CHF, renal failure) ASA 5: a moribund patient not expected to survive 24 hrs. (ruptured aneurysm) ASA 6: a declared brain- patient whose organs are being harvested. For emergent operations, add the letter E after the classification Mallampati Classification Grade 2 Sedation Plan Analgesia, Amnesia, Plan communicated to team members, Discussed options with chato dempsey/fam, Discussed risks with patient/fam The patient is an appropriate candidate to undergo the planned procedure, sedation, and anesthesia. The patient immediately re-assessed prior to indication. JAY THAKUR MD Jun 15, 2020 16:32
--- NOTE | 2020-06-15 16:41 | Diagnostic Imaging Report ---
INDICATION: Loculated left basilar effusion. EXAMINATION: Patient presents for CT-guided drain placement. TECHNIQUE: All CT scans use one or more of the following dose optimizing techniques: automated exposure control, MA and/or KvP adjustment based on patient size and exam type or iterative reconstruction. PROCEDURE: Patient was brought to the CT suite and placed on the table in the [id number] decubitus position. Axial imaging through the chest was then performed. A left posterior thorax was prepped and draped in the usual sterile fashion. Small amount of 1% lidocaine was utilized for local anesthesia. A Yueh needle was placed into the loculated effusion in the left lung base. Yueh was exchanged over an 035 guidewire. 6-Hungarian, 8-Hungarian and 10-Hungarian dilators were then placed over the guidewire to dilate the tract. Next, a 10.5-Hungarian all-purpose pigtail drain was advanced over the wire and formed in the collection. Approximately 420 mL of dark serous fluid was removed. The catheter was placed to an accordion drain. Patient tolerated the procedure well and left the department in stable condition. IMPRESSION: Successful CT-guided all purpose drain placement into the loculated left basilar effusion. Dictated by: Dictated on workstation # [id number]
== END 2020-06-15 15:15 ==
LOC: SDC 12:20
PROVIDERS: ATTEND Internal Medicine Hematology & Oncology
DX: Z51.11 Encounter for antineoplastic chemotherapy (principal); J90 Pleural effusion, not elsewhere classified; C40.21 Malignant neoplasm of long bones of right lower limb; C79.9 Secondary malignant neoplasm of unspecified site; C78.01 Secondary malignant neoplasm of right lung; C78.02 Secondary malignant neoplasm of left lung; I08.1 Rheumatic disorders of both mitral and tricuspid valves; T48.9 Poisoning by, adverse effect of and underdosing of other and unspecified agents primarily acting on the respiratory system; I11.9 Hypertensive heart disease without heart failure; E78.5 Hyperlipidemia, unspecified; E11.9 Type 2 diabetes mellitus without complications; Z79.899 Other long term (current) drug therapy; Z92.3 Personal history of irradiation; Z98.890 Other specified postprocedural states
CPT/HCPCS: 77012; 85027; 85610; 85730; 87070; 87075; 87205; A7048; C1729 ×2; C1769; 36415

== ENCOUNTER → 2020-06-30 | Outpatient (CLI) | payer MEDICARE, OTHER ==
--- NOTE | 2020-06-30 09:07 | Diagnostic Imaging Report ---
PROCEDURE: CT chest without contrast. TECHNIQUE: Multiple contiguous axial images were obtained through the chest without the use of intravenous contrast. Auto Exposure Controls were utilized during the CT exam to meet ALARA standards for radiation dose reduction. INDICATION: Left pleural effusion, status post drain placement. Study is performed for further evaluation. Correlation is made with CT chest study from 06/12/2020. There has been moderate reduction in size of left basilar effusion, status post percutaneous drain placement. Moderate amount of fluid remains. There is some internal densities to the fluid likely owing to some complexity and septation to the fluid. No right-sided effusion or pericardial effusion is identified. No axillary lymphadenopathy is identified. Numerous pulmonary masses throughout both lungs persist consistent with pulmonary metastatic disease. Upper abdomen is unremarkable. IMPRESSION: There has been moderate reduction in size of the left basilar effusion, status post percutaneous drain placement when compared with exam from 06/12/2020. There is a moderate amount of fluid remaining which does show some internal complexity. After discussion with Dr. Edwards, it was decided to remove the percutaneous drain at this time. The drain was divided with a scalpel and removed. Dressing was applied. Patient tolerated the procedure well. Dictated by: Dictated on workstation # [id number]
== END ==
LOC: RAD 08:10
PROVIDERS: ATTEND Internal Medicine Hematology & Oncology
DX: J90 Pleural effusion, not elsewhere classified (principal); C78.01 Secondary malignant neoplasm of right lung; C78.02 Secondary malignant neoplasm of left lung
CPT/HCPCS: 71250

== ENCOUNTER → 2020-07-19 | Outpatient (CLI) | payer MEDICARE, OTHER ==
--- NOTE | 2020-07-19 10:57 | Diagnostic Imaging Report ---
INDICATION: Cough and shortness of breath. TIME OF EXAM: 10:28 AM Correlation is made with prior chest 05/04/2020. FINDINGS: Left chest wall port has tip overlying SVC. Rounded masses in both lungs are again noted consistent with pulmonary metastases. A left sided effusion appears to be similar to examination from April. No right-sided effusion is seen. There is no pneumothorax. IMPRESSION: Bilateral pulmonary masses. Left basilar effusion appears stable. Dictated by: Dictated on workstation # [id number]
== END ==
LOC: RAD 10:05
PROVIDERS: ATTEND Nurse Practitioner Adult Health
DX: R91.8 Other nonspecific abnormal finding of lung field (principal)
CPT/HCPCS: 71046

== ENCOUNTER → 2020-07-26 | Outpatient (CLI) | payer MEDICARE, OTHER ==
--- NOTE | 2020-07-26 10:27 | Diagnostic Imaging Report ---
INDICATION: Persistent cough. Comparison with 07/19/2020. FINDINGS: Port-A-Cath on the left remains unchanged. Left-sided pleural effusion does not appear significantly changed. Bilateral pulmonary nodules are again demonstrated without significant change in appearance. IMPRESSION: 1. Persistent left pleural effusion moderate in nature. 2. Multiple known pulmonary nodules bilaterally appear essentially unchanged. Dictated by: Dictated on workstation # [id number]
== END ==
LOC: ONC 09:56
PROVIDERS: ATTEND Nurse Practitioner Adult Health
DX: J90 Pleural effusion, not elsewhere classified (principal); R91.8 Other nonspecific abnormal finding of lung field
CPT/HCPCS: 71046

== ENCOUNTER → 2020-08-09 | Outpatient (CLI) | payer MEDICARE, OTHER | LOC: LAB 08:49 | PROVIDERS: ATTEND Family Medicine | DX: E11.65 Type 2 diabetes mellitus with hyperglycemia (principal) | CPT/HCPCS: 36415; 83036 ==

== ENCOUNTER 2020-08-23 10:26 | Outpatient (RCR) | payer MEDICARE, OTHER ==
[2020-05-31 09:35] LABS: BASOPHILS # (AUTO) 0.1 10^3/uL (0.0-0.1); BASOPHILS % (AUTO) 0 % (0-10); EOSINOPHILS % (AUTO) 0 % (0-10); HEMATOCRIT 32 % (40-54); HEMOGLOBIN 9.9 g/dL (13.3-17.7); LYMPHOCYTES # (AUTO) 1.8 10^3/uL (1.0-4.0); LYMPHOCYTES % (AUTO) 12 % (12-44); MEAN CORPUSCULAR HEMOGLOBIN 26 pg (25-34); MEAN CORPUSCULAR HGB CONC 31 g/dL (32-36); MEAN CORPUSCULAR VOLUME 85 fL (80-99); MEAN PLATELET VOLUME 8.8 fL (9.0-12.2); MONOCYTES # (AUTO) 1.4 10^3/uL (0.0-1.0); MONOCYTES % (AUTO) 9 % (0-12); NEUTROPHILS # (AUTO) 10.6 10^3/uL (1.8-7.8); NEUTROPHILS % (AUTO) 71 % (42-75); PLATELET COUNT 616 10^3/uL (130-400); WHITE BLOOD COUNT 15.1 10^3/uL (4.3-11.0)
[2020-05-31 09:54] LABS: BUN/CREATININE RATIO 14; CALCIUM 9.5 MG/DL (8.5-10.1); CARBON DIOXIDE 23 MMOL/L (21-32); CHLORIDE 104 MMOL/L (98-107); CREATININE SERUM 0.86 MG/DL (0.60-1.30); GFR ESTIMATED > 60; GLUCOSE 116 MG/DL (70-105); POTASSIUM 4.2 MMOL/L (3.6-5.0); SODIUM 142 MMOL/L (135-145)
[2020-06-08 11:55] LABS: BASOPHILS % (AUTO) 1 % (0-10); EOSINOPHILS % (AUTO) 1 % (0-10); HEMATOCRIT 33 % (40-54); HEMOGLOBIN 10.1 g/dL (13.3-17.7); LYMPHOCYTES # (AUTO) 0.7 10^3/uL (1.0-4.0); LYMPHOCYTES % (AUTO) 37 % (12-44); MEAN CORPUSCULAR HEMOGLOBIN 26 pg (25-34); MEAN CORPUSCULAR HGB CONC 31 g/dL (32-36); MEAN CORPUSCULAR VOLUME 84 fL (80-99); MEAN PLATELET VOLUME 10.2 fL (9.0-12.2); MONOCYTES # (AUTO) 0.5 10^3/uL (0.0-1.0); MONOCYTES % (AUTO) 25 % (0-12); NEUTROPHILS # (AUTO) 0.7 10^3/uL (1.8-7.8); NEUTROPHILS % (AUTO) 35 % (42-75); PLATELET COUNT 159 10^3/uL (130-400); WHITE BLOOD COUNT 1.9 10^3/uL (4.3-11.0)
[2020-06-08 12:24] LABS: BUN/CREATININE RATIO 13; CALCIUM 8.1 MG/DL (8.5-10.1); CARBON DIOXIDE 20 MMOL/L (21-32); CHLORIDE 101 MMOL/L (98-107); CREATININE SERUM 0.84 MG/DL (0.60-1.30); GFR ESTIMATED > 60; GLUCOSE 116 MG/DL (70-105); POTASSIUM 3.9 MMOL/L (3.6-5.0); SODIUM 135 MMOL/L (135-145)
[2020-06-14 10:12] LABS: BASOPHILS % (AUTO) 1 % (0-10); EOSINOPHILS # (AUTO) 0.1 10^3/uL (0.0-0.3); EOSINOPHILS % (AUTO) 1 % (0-10); HEMATOCRIT 34 % (40-54); HEMOGLOBIN 10.4 g/dL (13.3-17.7); LYMPHOCYTES # (AUTO) 1.6 10^3/uL (1.0-4.0); LYMPHOCYTES % (AUTO) 31 % (12-44); MEAN CORPUSCULAR HEMOGLOBIN 26 pg (25-34); MEAN CORPUSCULAR HGB CONC 31 g/dL (32-36); MEAN CORPUSCULAR VOLUME 84 fL (80-99); MONOCYTES # (AUTO) 1.3 10^3/uL (0.0-1.0); MONOCYTES % (AUTO) 26 % (0-12); NEUTROPHILS # (AUTO) 1.9 10^3/uL (1.8-7.8); NEUTROPHILS % (AUTO) 39 % (42-75); PLATELET COUNT 526 10^3/uL (130-400)
[2020-06-14 10:29] LABS: ALANINE AMINOTRANSFERASE 24 U/L (0-55); ALBUMIN 3.2 GM/DL (3.2-4.5); ALKALINE PHOSPHATASE 123 U/L (40-136); BILIRUBIN,TOTAL 0.4 MG/DL (0.1-1.0); BUN/CREATININE RATIO 10; CALCIUM 8.6 MG/DL (8.5-10.1); CARBON DIOXIDE 25 MMOL/L (21-32); CHLORIDE 102 MMOL/L (98-107); CREATININE SERUM 0.72 MG/DL (0.60-1.30); GFR ESTIMATED > 60; GLUCOSE 109 MG/DL (70-105); POTASSIUM 3.8 MMOL/L (3.6-5.0); SODIUM 140 MMOL/L (135-145); TOTAL PROTEIN 5.7 GM/DL (6.4-8.2)
[2020-06-21 09:08] LABS: BASOPHILS # (AUTO) 0.1 10^3/uL (0.0-0.1); BASOPHILS % (AUTO) 0 % (0-10); EOSINOPHILS % (AUTO) 0 % (0-10); HEMATOCRIT 32 % (40-54); HEMOGLOBIN 9.9 g/dL (13.3-17.7); LYMPHOCYTES # (AUTO) 1.7 10^3/uL (1.0-4.0); LYMPHOCYTES % (AUTO) 11 % (12-44); MEAN CORPUSCULAR HEMOGLOBIN 26 pg (25-34); MEAN CORPUSCULAR HGB CONC 31 g/dL (32-36); MEAN CORPUSCULAR VOLUME 85 fL (80-99); MEAN PLATELET VOLUME 8.7 fL (9.0-12.2); MONOCYTES # (AUTO) 1.2 10^3/uL (0.0-1.0); MONOCYTES % (AUTO) 7 % (0-12); NEUTROPHILS # (AUTO) 11.2 10^3/uL (1.8-7.8); NEUTROPHILS % (AUTO) 72 % (42-75); PLATELET COUNT 561 10^3/uL (130-400); WHITE BLOOD COUNT 15.5 10^3/uL (4.3-11.0)
[2020-06-21 09:28] LABS: BUN/CREATININE RATIO 20; CALCIUM 9.3 MG/DL (8.5-10.1); CARBON DIOXIDE 18 MMOL/L (21-32); CHLORIDE 101 MMOL/L (98-107); CREATININE SERUM 0.82 MG/DL (0.60-1.30); GFR ESTIMATED > 60; GLUCOSE 150 MG/DL (70-105); POTASSIUM 4.2 MMOL/L (3.6-5.0); SODIUM 138 MMOL/L (135-145)
[2020-06-28 11:12] LABS: BASOPHILS % (AUTO) 0 % (0-10); EOSINOPHILS % (AUTO) 1 % (0-10); HEMATOCRIT 32 % (40-54); HEMOGLOBIN 9.9 g/dL (13.3-17.7); LYMPHOCYTES # (AUTO) 1.2 10^3/uL (1.0-4.0); LYMPHOCYTES % (AUTO) 32 % (12-44); MEAN CORPUSCULAR HEMOGLOBIN 26 pg (25-34); MEAN CORPUSCULAR HGB CONC 31 g/dL (32-36); MEAN CORPUSCULAR VOLUME 86 fL (80-99); MONOCYTES # (AUTO) 0.3 10^3/uL (0.0-1.0); MONOCYTES % (AUTO) 8 % (0-12); NEUTROPHILS # (AUTO) 2.1 10^3/uL (1.8-7.8); NEUTROPHILS % (AUTO) 58 % (42-75); PLATELET COUNT 165 10^3/uL (130-400); WHITE BLOOD COUNT 3.6 10^3/uL (4.3-11.0)
[2020-06-28 11:32] LABS: CHLORIDE 101 MMOL/L (98-107); POTASSIUM 4.3 MMOL/L (3.6-5.0); SODIUM 137 MMOL/L (135-145)
[2020-06-28 11:33] LABS: CALCIUM 8.7 MG/DL (8.5-10.1)
[2020-06-28 11:34] LABS: GLUCOSE 81 MG/DL (70-105)
[2020-06-28 11:36] LABS: CARBON DIOXIDE 26 MMOL/L (21-32)
[2020-06-28 11:38] LABS: CREATININE SERUM 0.71 MG/DL (0.60-1.30); GFR ESTIMATED > 60
[2020-06-28 11:39] LABS: BUN/CREATININE RATIO 11
[2020-07-05 09:42] LABS: BASOPHILS % (AUTO) 1 % (0-10); EOSINOPHILS # (AUTO) 0.1 10^3/uL (0.0-0.3); EOSINOPHILS % (AUTO) 1 % (0-10); HEMATOCRIT 35 % (40-54); HEMOGLOBIN 10.4 g/dL (13.3-17.7); LYMPHOCYTES # (AUTO) 1.5 10^3/uL (1.0-4.0); LYMPHOCYTES % (AUTO) 31 % (12-44); MEAN CORPUSCULAR HEMOGLOBIN 26 pg (25-34); MEAN CORPUSCULAR HGB CONC 30 g/dL (32-36); MEAN CORPUSCULAR VOLUME 88 fL (80-99); MEAN PLATELET VOLUME 9.4 fL (9.0-12.2); MONOCYTES # (AUTO) 1.4 10^3/uL (0.0-1.0); MONOCYTES % (AUTO) 29 % (0-12); NEUTROPHILS # (AUTO) 1.7 10^3/uL (1.8-7.8); NEUTROPHILS % (AUTO) 37 % (42-75); PLATELET COUNT 506 10^3/uL (130-400); WHITE BLOOD COUNT 4.7 10^3/uL (4.3-11.0)
[2020-07-05 10:04] LABS: ALANINE AMINOTRANSFERASE 16 U/L (0-55); ALBUMIN 3.4 GM/DL (3.2-4.5); BILIRUBIN,TOTAL 0.3 MG/DL (0.1-1.0); BUN/CREATININE RATIO 12; CARBON DIOXIDE 25 MMOL/L (21-32); CHLORIDE 103 MMOL/L (98-107); CREATININE SERUM 0.78 MG/DL (0.60-1.30); GFR ESTIMATED > 60; GLUCOSE 111 MG/DL (70-105); POTASSIUM 4.1 MMOL/L (3.6-5.0); SODIUM 140 MMOL/L (135-145); TOTAL PROTEIN 5.8 GM/DL (6.4-8.2)
[2020-07-05 10:30] LABS: ALKALINE PHOSPHATASE 93 U/L (40-136)
[2020-07-12 09:09] LABS: BASOPHILS # (AUTO) 0.1 10^3/uL (0.0-0.1); BASOPHILS % (AUTO) 0 % (0-10); EOSINOPHILS % (AUTO) 0 % (0-10); HEMATOCRIT 31 % (40-54); HEMOGLOBIN 9.7 g/dL (13.3-17.7); LYMPHOCYTES # (AUTO) 1.5 10^3/uL (1.0-4.0); LYMPHOCYTES % (AUTO) 10 % (12-44); MEAN CORPUSCULAR HEMOGLOBIN 27 pg (25-34); MEAN CORPUSCULAR HGB CONC 31 g/dL (32-36); MEAN CORPUSCULAR VOLUME 87 fL (80-99); MEAN PLATELET VOLUME 8.6 fL (9.0-12.2); MONOCYTES # (AUTO) 1.8 10^3/uL (0.0-1.0); MONOCYTES % (AUTO) 12 % (0-12); NEUTROPHILS # (AUTO) 9.9 10^3/uL (1.8-7.8); NEUTROPHILS % (AUTO) 66 % (42-75); PLATELET COUNT 484 10^3/uL (130-400); WHITE BLOOD COUNT 14.9 10^3/uL (4.3-11.0)
[2020-07-12 09:39] LABS: BUN/CREATININE RATIO 16; CALCIUM 8.7 MG/DL (8.5-10.1); CARBON DIOXIDE 21 MMOL/L (21-32); CHLORIDE 104 MMOL/L (98-107); CREATININE SERUM 0.81 MG/DL (0.60-1.30); GFR ESTIMATED > 60; GLUCOSE 120 MG/DL (70-105); POTASSIUM 4.1 MMOL/L (3.6-5.0); SODIUM 140 MMOL/L (135-145)
[2020-07-19 09:47] LABS: HEMATOCRIT 31 % (40-54); LYMPHOCYTES # (AUTO) 0.9 10^3/uL (1.0-4.0); MEAN CORPUSCULAR VOLUME 84 fL (80-99)
[2020-07-19 09:49] LABS: BASOPHILS % (AUTO) 1 % (0-10); EOSINOPHILS % (AUTO) 0 % (0-10); HEMOGLOBIN 9.8 g/dL (13.3-17.7); LYMPHOCYTES % (AUTO) 26 % (12-44); MEAN CORPUSCULAR HEMOGLOBIN 27 pg (25-34); MEAN CORPUSCULAR HGB CONC 32 g/dL (32-36); MEAN PLATELET VOLUME 9.9 fL (9.0-12.2); MONOCYTES # (AUTO) 0.5 10^3/uL (0.0-1.0); MONOCYTES % (AUTO) 13 % (0-12); NEUTROPHILS # (AUTO) 2.1 10^3/uL (1.8-7.8); NEUTROPHILS % (AUTO) 60 % (42-75); PLATELET COUNT 135 10^3/uL (130-400); WHITE BLOOD COUNT 3.6 10^3/uL (4.3-11.0)
[2020-07-19 10:05] LABS: BUN/CREATININE RATIO 11; CALCIUM 8.6 MG/DL (8.5-10.1); CARBON DIOXIDE 18 MMOL/L (21-32); CHLORIDE 99 MMOL/L (98-107); CREATININE SERUM 0.91 MG/DL (0.60-1.30); GFR ESTIMATED > 60; GLUCOSE 111 MG/DL (70-105); POTASSIUM 3.9 MMOL/L (3.6-5.0); SODIUM 134 MMOL/L (135-145)
[2020-07-26 09:22] LABS: BASOPHILS % (AUTO) 1 % (0-10); EOSINOPHILS % (AUTO) 1 % (0-10); HEMATOCRIT 31 % (40-54); HEMOGLOBIN 9.5 g/dL (13.3-17.7); LYMPHOCYTES # (AUTO) 1.3 10^3/uL (1.0-4.0); LYMPHOCYTES % (AUTO) 23 % (12-44); MEAN CORPUSCULAR HEMOGLOBIN 26 pg (25-34); MEAN CORPUSCULAR HGB CONC 30 g/dL (32-36); MEAN CORPUSCULAR VOLUME 87 fL (80-99); MEAN PLATELET VOLUME 9.2 fL (9.0-12.2); MONOCYTES # (AUTO) 1.4 10^3/uL (0.0-1.0); MONOCYTES % (AUTO) 25 % (0-12); NEUTROPHILS # (AUTO) 2.6 10^3/uL (1.8-7.8); NEUTROPHILS % (AUTO) 47 % (42-75); PLATELET COUNT 588 10^3/uL (130-400); WHITE BLOOD COUNT 5.5 10^3/uL (4.3-11.0)
[2020-07-26 09:56] LABS: ALANINE AMINOTRANSFERASE 14 U/L (0-55); ALBUMIN 2.8 GM/DL (3.2-4.5); ALKALINE PHOSPHATASE 77 U/L (40-136); BILIRUBIN,TOTAL 0.3 MG/DL (0.1-1.0); BUN/CREATININE RATIO 11; CALCIUM 8.9 MG/DL (8.5-10.1); CARBON DIOXIDE 22 MMOL/L (21-32); CHLORIDE 106 MMOL/L (98-107); CREATININE SERUM 0.74 MG/DL (0.60-1.30); GFR ESTIMATED > 60; GLUCOSE 109 MG/DL (70-105); POTASSIUM 3.7 MMOL/L (3.6-5.0); SODIUM 142 MMOL/L (135-145); TOTAL PROTEIN 5.4 GM/DL (6.4-8.2)
[2020-08-02 09:18] LABS: BASOPHILS # (AUTO) 0.1 10^3/uL (0.0-0.1); BASOPHILS % (AUTO) 1 % (0-10); EOSINOPHILS # (AUTO) 0.1 10^3/uL (0.0-0.3); EOSINOPHILS % (AUTO) 1 % (0-10); HEMATOCRIT 33 % (40-54); HEMOGLOBIN 9.9 g/dL (13.3-17.7); LYMPHOCYTES # (AUTO) 1.3 10^3/uL (1.0-4.0); LYMPHOCYTES % (AUTO) 14 % (12-44); MEAN CORPUSCULAR HEMOGLOBIN 26 pg (25-34); MEAN CORPUSCULAR HGB CONC 30 g/dL (32-36); MEAN CORPUSCULAR VOLUME 87 fL (80-99); MEAN PLATELET VOLUME 9.2 fL (9.0-12.2); MONOCYTES # (AUTO) 1.7 10^3/uL (0.0-1.0); MONOCYTES % (AUTO) 18 % (0-12); NEUTROPHILS # (AUTO) 6.2 10^3/uL (1.8-7.8); NEUTROPHILS % (AUTO) 66 % (42-75); PLATELET COUNT 626 10^3/uL (130-400); WHITE BLOOD COUNT 9.5 10^3/uL (4.3-11.0)
[2020-08-02 09:34] LABS: BUN/CREATININE RATIO 11; CALCIUM 8.6 MG/DL (8.5-10.1); CARBON DIOXIDE 26 MMOL/L (21-32); CHLORIDE 104 MMOL/L (98-107); CREATININE SERUM 0.74 MG/DL (0.60-1.30); GFR ESTIMATED > 60; GLUCOSE 98 MG/DL (70-105); POTASSIUM 3.8 MMOL/L (3.6-5.0); SODIUM 141 MMOL/L (135-145)
[2020-08-09 09:09] LABS: BASOPHILS % (AUTO) 0 % (0-10); EOSINOPHILS % (AUTO) 0 % (0-10); HEMATOCRIT 29 % (40-54); HEMOGLOBIN 9.2 g/dL (13.3-17.7); LYMPHOCYTES # (AUTO) 0.8 10^3/uL (1.0-4.0); LYMPHOCYTES % (AUTO) 8 % (12-44); MEAN CORPUSCULAR HEMOGLOBIN 27 pg (25-34); MEAN CORPUSCULAR HGB CONC 32 g/dL (32-36); MEAN CORPUSCULAR VOLUME 86 fL (80-99); MEAN PLATELET VOLUME 8.8 fL (9.0-12.2); MONOCYTES # (AUTO) 0.7 10^3/uL (0.0-1.0); MONOCYTES % (AUTO) 7 % (0-12); NEUTROPHILS # (AUTO) 7.9 10^3/uL (1.8-7.8); NEUTROPHILS % (AUTO) 81 % (42-75); PLATELET COUNT 415 10^3/uL (130-400); WHITE BLOOD COUNT 9.9 10^3/uL (4.3-11.0)
[2020-08-09 09:26] LABS: BUN/CREATININE RATIO 21; CALCIUM 9.6 MG/DL (8.5-10.1); CARBON DIOXIDE 24 MMOL/L (21-32); CHLORIDE 102 MMOL/L (98-107); CREATININE SERUM 0.72 MG/DL (0.60-1.30); GFR ESTIMATED > 60; GLUCOSE 127 MG/DL (70-105); POTASSIUM 4.3 MMOL/L (3.6-5.0); SODIUM 140 MMOL/L (135-145)
[2020-08-23 09:10] LABS: BASOPHILS % (AUTO) 1 % (0-10); EOSINOPHILS # (AUTO) 0.1 10^3/uL (0.0-0.3); EOSINOPHILS % (AUTO) 1 % (0-10); HEMATOCRIT 30 % (40-54); HEMOGLOBIN 9.3 g/dL (13.3-17.7); LYMPHOCYTES # (AUTO) 1.2 10^3/uL (1.0-4.0); LYMPHOCYTES % (AUTO) 22 % (12-44); MEAN CORPUSCULAR HEMOGLOBIN 26 pg (25-34); MEAN CORPUSCULAR HGB CONC 31 g/dL (32-36); MEAN CORPUSCULAR VOLUME 85 fL (80-99); MEAN PLATELET VOLUME 8.8 fL (9.0-12.2); MONOCYTES # (AUTO) 1.2 10^3/uL (0.0-1.0); MONOCYTES % (AUTO) 21 % (0-12); NEUTROPHILS # (AUTO) 3.1 10^3/uL (1.8-7.8); NEUTROPHILS % (AUTO) 54 % (42-75); PLATELET COUNT 643 10^3/uL (130-400); WHITE BLOOD COUNT 5.7 10^3/uL (4.3-11.0)
[2020-08-23 09:33] LABS: ALANINE AMINOTRANSFERASE 17 U/L (0-55); ALKALINE PHOSPHATASE 109 U/L (40-136); BILIRUBIN,TOTAL 0.6 MG/DL (0.1-1.0); BUN/CREATININE RATIO 9; CALCIUM 8.7 MG/DL (8.5-10.1); CARBON DIOXIDE 25 MMOL/L (21-32); CHLORIDE 102 MMOL/L (98-107); GFR ESTIMATED > 60; GLUCOSE 152 MG/DL (70-105); POTASSIUM 3.7 MMOL/L (3.6-5.0); SODIUM 138 MMOL/L (135-145); TOTAL PROTEIN 5.6 GM/DL (6.4-8.2)
[~2020-08-23 10:26] MED LIST changes: +DOCETAXEL IV SCH; +FAMOTIDINE 20MG/2ML IV (CANCER CTR) IV SCH; +GEMCITABINE HCL 1 GM, GEMCITABINE HCL 300 MG in NS (IVPB) CANCER CENTER 100 ML IV SCH; +NORMAL SALINE IV SCH; +NS IV 1000 ML (CANCER CTR) IV SCH; +diphenhydrAMINE 25 MG TAB (BENADRYL) CANCER CENTER PO ONE; +diphenhydrAMINE 50 MG/ML INJ (CANCER CENTER) IV PRN
== END 2020-08-29 | disposition home or self-care (01) ==
LOC: ONC 10:26
PROVIDERS: ATTEND Internal Medicine Hematology & Oncology
DX: Z51.11 Encounter for antineoplastic chemotherapy (principal); C49.21 Malignant neoplasm of connective and soft tissue of right lower limb, including hip; E11.9 Type 2 diabetes mellitus without complications; I10 Essential (primary) hypertension; E78.5 Hyperlipidemia, unspecified; C78.01 Secondary malignant neoplasm of right lung; C78.02 Secondary malignant neoplasm of left lung; J90 Pleural effusion, not elsewhere classified; Z79.899 Other long term (current) drug therapy; Z98.890 Other specified postprocedural states; Z92.3 Personal history of irradiation
CPT/HCPCS: 36591; 71250; 80048; 80053; 83615; 85025; 96367; 96375; 96413; 96417; 99213

== ENCOUNTER → 2020-09-11 | Outpatient (CLI) | payer MEDICARE, OTHER ==
[~2020-09-11] MED LIST changes: +CATHETER FLUSH 10 ML SYR IV PRN; -DOCETAXEL IV SCH; -FAMOTIDINE 20MG/2ML IV (CANCER CTR) IV SCH; -GEMCITABINE HCL 1 GM, GEMCITABINE HCL 300 MG in NS (IVPB) CANCER CENTER 100 ML IV SCH; +HOLD METFORMIN - RECEIVED CONTRAST 20 ML VIAL IV SCH; +IOHEXOL 350 MG/ML 100 ML (OMNIPAQUE 350) VIAL IV ONE; -NORMAL SALINE IV SCH; +NS 100 ML (IVPB) BAG IV ONE; -NS IV 1000 ML (CANCER CTR) IV SCH; -diphenhydrAMINE 25 MG TAB (BENADRYL) CANCER CENTER PO ONE; -diphenhydrAMINE 50 MG/ML INJ (CANCER CENTER) IV PRN
--- NOTE | 2020-09-11 12:43 | Diagnostic Imaging Report ---
PROCEDURE: CT chest and abdomen with contrast. TECHNIQUE: Multiple contiguous axial images were obtained through the chest and abdomen after the administration of intravenous contrast. Auto Exposure Controls were utilized during the CT exam to meet ALARA standards for radiation dose reduction. Date: September 11, 2020. Indication: 80-year-old male, history of connective tissue neoplasm with lung metastasis. Comparison: CT chest, abdomen and pelvis June 12, 2020. Findings: There is a cavitary right upper lobe pulmonary nodule on axial image 13 measuring up to 2.0 cm in size which previously measured 1.6 cm in size on June 12, 2020. There is additional cavitary lesion in the right upper lobe on axial image 17 also measuring larger in size currently at 1.3 cm. There are multiple additional bilateral pulmonary nodules and/or masses, many of which are cavitary. There is an example mass in the right lower lobe on axial image 44 measuring 3.6 x 2.7 cm in size previously measuring 2.8 x 2.2 cm in size. There is a subjacent mass extending near the pleural margin also a substantial interval change since the recent comparison CT. The additional multiple bilateral pulmonary nodules are also increased in size since June 12, 2020. There is no pneumothorax. There is a moderate to large left pleural effusion. There is abnormal pleural thickening on the left with a well identified pleural-based nodule on the left adjacent to the left lower lobe on axial image 47 measuring 2.1 x 1.7 cm in size. This pleural-based nodule is an interval worsening since the comparison CT. There is no identified abnormally enlarged mediastinal, hilar, or axillary lymph node meeting CT size criteria for adenopathy. The liver is unremarkable in size and contour. The main, right, and left portal veins are patent. The gallbladder is unremarkable. There is no intrahepatic or extrahepatic bile duct dilation. The main pancreatic duct is not abnormally dilated. Unremarkable appearance of the pancreatic parenchyma. The spleen is normal in size. There is a left adrenal nodule on axial image 51 measuring 11 mm in size. This is unchanged. Internal attenuation measures 50 Hounsfield units. This is indeterminate. Unremarkable appearance of the renal parenchyma. There is no hydronephrosis. Visualized portions of the intestinal tract are not distended. There is no free intraperitoneal air. There is no drainable fluid collection. There is no ascites. There is no identified abnormally enlarged lymph node in the abdomen meeting size criteria for adenopathy. There are multilevel degenerative changes of the spine. There is grade 1 anterolisthesis of L4 on L5. There is no identified aggressive bone lesion. Impression: 1. Numerous bilateral pulmonary nodules and masses with interval progression since June 12, 2020 consistent with progressive metastatic disease to the lungs. 2. Pleural-based metastasis bilaterally with moderate to large left pleural effusion. This is also a progression. 3. Indeterminate left adrenal nodule is stable since June 12, 2020. Dictated by: Dictated on workstation # [id number]
--- NOTE | 2020-09-11 14:19 | Diagnostic Imaging Report ---
Indication: Sarcoma. Patient received intravenous dose 25 mCi technetium 99 MDP, whole-body planar imaging then performed 3 hours after injection and compared with the study dated 06/12/2020. Findings: There is a degenerative pattern of uptake about the lower thoracic and upper lumbar spine stable. There is no suspicious uptake in the axial or appendicular skeleton, soft tissue uptake and excretion by urinary tracts physiologic. No suspicious finding. Impression: Stable benign distribution of the radiopharmacy. No suspicious sonographic findings. Dictated by: Dictated on workstation # [id number]
== END ==
LOC: CARD 11:00
PROVIDERS: ATTEND Nurse Practitioner Adult Health
DX: C49.9 Malignant neoplasm of connective and soft tissue, unspecified (principal); C78.00 Secondary malignant neoplasm of unspecified lung; J90 Pleural effusion, not elsewhere classified; E27.8 Other specified disorders of adrenal gland; R91.8 Other nonspecific abnormal finding of lung field
CPT/HCPCS: 71260; 74160; 78306; A9503

== ENCOUNTER 2020-09-13 08:41 | Outpatient (RCR) | payer MEDICARE, OTHER ==
[2020-08-30 09:14] LABS: BASOPHILS % (AUTO) 0 % (0-10); EOSINOPHILS % (AUTO) 0 % (0-10); HEMATOCRIT 31 % (40-54); HEMOGLOBIN 9.5 g/dL (13.3-17.7); LYMPHOCYTES # (AUTO) 1.3 10^3/uL (1.0-4.0); LYMPHOCYTES % (AUTO) 10 % (12-44); MEAN CORPUSCULAR HEMOGLOBIN 26 pg (25-34); MEAN CORPUSCULAR HGB CONC 31 g/dL (32-36); MEAN CORPUSCULAR VOLUME 84 fL (80-99); MEAN PLATELET VOLUME 8.4 fL (9.0-12.2); MONOCYTES # (AUTO) 1.2 10^3/uL (0.0-1.0); MONOCYTES % (AUTO) 9 % (0-12); NEUTROPHILS % (AUTO) 74 % (42-75); PLATELET COUNT 592 10^3/uL (130-400); WHITE BLOOD COUNT 13.5 10^3/uL (4.3-11.0)
[2020-08-30 09:35] LABS: BUN/CREATININE RATIO 13; CALCIUM 9.6 MG/DL (8.5-10.1); CARBON DIOXIDE 26 MMOL/L (21-32); CHLORIDE 100 MMOL/L (98-107); CREATININE SERUM 0.75 MG/DL (0.60-1.30); GFR ESTIMATED > 60; GLUCOSE 163 MG/DL (70-105); POTASSIUM 4.1 MMOL/L (3.6-5.0); SODIUM 137 MMOL/L (135-145)
[~2020-09-13 08:41] MED LIST changes: -CATHETER FLUSH 10 ML SYR IV PRN; +DOCETAXEL IV SCH; +FAMOTIDINE 20MG/2ML IV (CANCER CTR) IV SCH; +GEMCITABINE HCL 1 GM, GEMCITABINE HCL 300 MG in NS (IVPB) CANCER CENTER 100 ML IV SCH; -HOLD METFORMIN - RECEIVED CONTRAST 20 ML VIAL IV SCH; -IOHEXOL 350 MG/ML 100 ML (OMNIPAQUE 350) VIAL IV ONE; +NORMAL SALINE IV SCH; -NS 100 ML (IVPB) BAG IV ONE; +NS IV 1000 ML (CANCER CTR) IV SCH; +diphenhydrAMINE 25 MG TAB (BENADRYL) CANCER CENTER PO ONE; +diphenhydrAMINE 25 MG TAB (BENADRYL) CANCER CENTER PO SCH; +diphenhydrAMINE 50 MG/ML INJ (CANCER CENTER) IV PRN
[2020-09-13 09:13] LABS: BASOPHILS # (AUTO) 0.1 10^3/uL (0.0-0.1); BASOPHILS % (AUTO) 1 % (0-10); EOSINOPHILS # (AUTO) 0.2 10^3/uL (0.0-0.3); EOSINOPHILS % (AUTO) 2 % (0-10); HEMATOCRIT 28 % (40-54); HEMOGLOBIN 8.8 g/dL (13.3-17.7); LYMPHOCYTES % (AUTO) 13 % (12-44); MEAN CORPUSCULAR HEMOGLOBIN 26 pg (25-34); MEAN CORPUSCULAR HGB CONC 31 g/dL (32-36); MEAN CORPUSCULAR VOLUME 83 fL (80-99); MEAN PLATELET VOLUME 8.9 fL (9.0-12.2); MONOCYTES # (AUTO) 1.8 10^3/uL (0.0-1.0); MONOCYTES % (AUTO) 23 % (0-12); NEUTROPHILS # (AUTO) 4.8 10^3/uL (1.8-7.8); NEUTROPHILS % (AUTO) 60 % (42-75); PLATELET COUNT 613 10^3/uL (130-400)
[2020-09-13 09:31] LABS: ALANINE AMINOTRANSFERASE 21 U/L (0-55); ALBUMIN 2.8 GM/DL (3.2-4.5); ALKALINE PHOSPHATASE 127 U/L (40-136); BILIRUBIN,TOTAL 0.9 MG/DL (0.1-1.0); BUN/CREATININE RATIO 11; CALCIUM 8.4 MG/DL (8.5-10.1); CARBON DIOXIDE 24 MMOL/L (21-32); CHLORIDE 97 MMOL/L (98-107); CREATININE SERUM 0.73 MG/DL (0.60-1.30); GFR ESTIMATED > 60; GLUCOSE 113 MG/DL (70-105); MAGNESIUM 1.6 MG/DL (1.6-2.4); POTASSIUM 3.8 MMOL/L (3.6-5.0); SODIUM 132 MMOL/L (135-145); TOTAL PROTEIN 5.5 GM/DL (6.4-8.2)
== END 2020-11-28 | disposition home or self-care (01) ==
LOC: ONC 08:41
PROVIDERS: ATTEND Internal Medicine Hematology & Oncology
DX: Z51.11 Encounter for antineoplastic chemotherapy (principal); C49.21 Malignant neoplasm of connective and soft tissue of right lower limb, including hip; C78.01 Secondary malignant neoplasm of right lung; C78.02 Secondary malignant neoplasm of left lung; E11.9 Type 2 diabetes mellitus without complications; I10 Essential (primary) hypertension; E78.5 Hyperlipidemia, unspecified; J98.11 Atelectasis; E27.8 Other specified disorders of adrenal gland; J90 Pleural effusion, not elsewhere classified; Z79.899 Other long term (current) drug therapy; Z98.890 Other specified postprocedural states; Z92.3 Personal history of irradiation
CPT/HCPCS: 36591; 80048; 80053; 83735; 85025; 96375; 96413; 96417

== ENCOUNTER 2020-09-22 11:47 | Emergency (ER) | payer MEDICARE, OTHER ==
[~2020-09-22] VITALS: Ht 185 cm; Wt 92.0 kg
[~2020-09-22 11:47] MED LIST changes: -DOCETAXEL IV SCH; -FAMOTIDINE 20MG/2ML IV (CANCER CTR) IV SCH; -GEMCITABINE HCL 1 GM, GEMCITABINE HCL 300 MG in NS (IVPB) CANCER CENTER 100 ML IV SCH; -NORMAL SALINE IV SCH; -NS IV 1000 ML (CANCER CTR) IV SCH; -diphenhydrAMINE 25 MG TAB (BENADRYL) CANCER CENTER PO ONE; -diphenhydrAMINE 25 MG TAB (BENADRYL) CANCER CENTER PO SCH; -diphenhydrAMINE 50 MG/ML INJ (CANCER CENTER) IV PRN
[2020-09-22 12:15] LABS: BASOPHILS # (AUTO) 0.1 10^3/uL (0.0-0.1); BASOPHILS % (AUTO) 0 % (0-10); EOSINOPHILS # (AUTO) 0.1 10^3/uL (0.0-0.3); EOSINOPHILS % (AUTO) 1 % (0-10); HEMATOCRIT 30 % (40-54); HEMOGLOBIN 9.1 g/dL (13.3-17.7); LYMPHOCYTES # (AUTO) 1.4 10^3/uL (1.0-4.0); LYMPHOCYTES % (AUTO) 6 % (12-44); MEAN CORPUSCULAR HEMOGLOBIN 25 pg (25-34); MEAN CORPUSCULAR HGB CONC 30 g/dL (32-36); MEAN CORPUSCULAR VOLUME 84 fL (80-99); MONOCYTES # (AUTO) 2.7 10^3/uL (0.0-1.0); MONOCYTES % (AUTO) 12 % (0-12); NEUTROPHILS # (AUTO) 18.2 10^3/uL (1.8-7.8); NEUTROPHILS % (AUTO) 80 % (42-75); PLATELET COUNT 726 10^3/uL (130-400); WHITE BLOOD COUNT 22.8 10^3/uL (4.3-11.0)
[2020-09-22 12:25] LABS: ALBUMIN 2.7 GM/DL (3.2-4.5); POTASSIUM 3.9 MMOL/L (3.6-5.0)
[2020-09-22 12:26] LABS: CALCIUM 8.4 MG/DL (8.5-10.1)
[2020-09-22 12:27] LABS: TOTAL PROTEIN 5.6 GM/DL (6.4-8.2)
[2020-09-22 12:29] LABS: BILIRUBIN,TOTAL 0.9 MG/DL (0.1-1.0)
[2020-09-22 12:31] LABS: CREATININE SERUM 0.8 MG/DL (0.60-1.30)
[2020-09-22 12:34] LABS: MAGNESIUM 1.3 MG/DL (1.6-2.4)
[2020-09-22 12:41] LABS: ANISOCYTOSIS SLIGHT; BAND NEUTROPHILS 1 %; BASOPHILS % (MANUAL) 0 %; ELLIPT/OVALOCYTES SLIGHT; EOSINOPHILS % (MANUAL) 0 %; LYMPHOCYTES % (MANUAL) 6 %; MONOCYTES % (MANUAL) 10 %; NEUTROPHILS % (MANUAL) 83 %; POIKILOCYTOSIS SLIGHT; POLYCHROMASIA SLIGHT
[2020-09-22 13:10] LABS: INR 1.6 (0.8-1.4); PROTHROMBIN TIME PATIENT 19.9 SEC (12.2-14.7)
--- NOTE | 2020-09-22 13:14 | Diagnostic Imaging Report ---
Clinical indication: Patient with chest pain. Exam: Portable chest x-ray upright view. Comparisons: Chest x-ray dated 10/21/2019. Findings: There is interval development of patchy areas of consolidation throughout both lungs with the left lung worse than the right. There is interval development of left pleural effusion which is small to moderate in size and possible small right pleural effusion. Mild cardiomegaly is seen. Pulmonary vasculature is within normal limits. There are degenerative spurs involving the spine. IMPRESSION: 1: There is interval development of diffuse bilateral lung infiltrates and bilateral pleural effusions concerning for pneumonia. 2: There is cardiomegaly with no significant pulmonary vascular congestion. Dictated by: Dictated on workstation # [id number]
[2020-09-22] MEDS ORDERED: CEFEPIME INJECTION 2,000 MG in WATER (STERILE) FOR INJECTION 20 ML IV ONE (13:30)
[2020-09-22] MEDS ORDERED: IOHEXOL 350 MG/ML 100 ML (OMNIPAQUE 350) VIAL IV ONE (13:45)
[2020-09-22] MEDS ORDERED: NS 100 ML (IVPB) BAG IV ONE (13:45)
[2020-09-22] MEDS ORDERED: HOLD METFORMIN - RECEIVED CONTRAST 20 ML VIAL IV SCH (13:45)
--- NOTE | 2020-09-22 14:19 | Diagnostic Imaging Report ---
PROCEDURE: CT angiography of the chest with contrast. TECHNIQUE: Multiple contiguous axial images were obtained through the chest after uneventful bolus administration of intravenous contrast. 3D reconstructed CTA MIP acquisitions were also performed. Auto Exposure Controls were utilized during the CT exam to meet ALARA standards for radiation dose reduction. INDICATION: Lung neoplasm and pleural effusion. COMPARISON: Correlation is made with CT chest study performed on 09/11/2020. FINDINGS: The left chest wall port has the tip at the SVC right-atrial junction. No axillary lymphadenopathy is identified. No definite mediastinal lymphadenopathy is identified. Pulmonary arterial system is without evidence of thromboembolism. No definite filling defects are seen within central, lobar, or segmental branches. The thoracic aorta is normal in caliber. There is no dissection. No pericardial fluid is seen. There is a small right pleural effusion which appears to be dependent. There does appear to be some pleural nodularity in the right base, suspicious for pleural metastatic disease. A loculated [id number] left effusion with marked pleural nodularity appears similar to prior exam and again is suggestive of pleural metastatic disease. There are numerous large pulmonary masses throughout both lungs, similar to exam two weeks ago. Cavitary mass in the right lower lobe adjacent to the right hilum is seen. Patient has developed a very small right-sided pneumothorax less than 10%. Upper abdomen is unremarkable. IMPRESSION: Overall, stable CT angiogram of the chest when compared with study from 09/11/2020. There is no evidence of pulmonary embolism. Diffuse pulmonary metastatic disease appears about the same. The bilateral effusions, loculated on the left, appear about the same. Bilateral pleural nodularity, consistent with pleural metastatic disease is noted. Dictated by: Dictated on workstation # [id number]
[2020-09-22] MEDS ORDERED: RT-ALBUTEROL/IPRATROPIUM 3 ML (DUONEB) VIAL ONE (14:40)
--- NOTE | 2020-09-22 15:51 | ED General ---
General Chief Complaint: Respiratory Problems Stated Complaint: CHEST PAIN Nursing Triage Note: TO ED PER EMS FROM [facility] ACCORDING TO STAFF PATIENT HAS A MALIGNANT NEPOLASM OF THE LUNG TODAY HIS SA02 HAS BEEN 90% AND HR IN THE 120 PATIENT DOES HAVE A PLEURAL EFFUSION THAT HE REFUSED TO HAVE DRAINED. / Source of Information: Patient, EMS, Old Records Exam Limitations: No Limitations History of Present Illness Date Seen by Provider: Sep 22, 2020 Time Seen by Provider: 11:48 Initial Comments This 80-year-old gentleman presents to the emergency room from [facility] where he developed a right-sided chest pain and worsening shortness of breath today. He has history of metastatic cancer with lesions to the lung and also pleural effusion. There was a prior attempt at thoracentesis previously t hat was not very successful and he does not want to go through with any further chest tubes or draining procedures. He is afebrile at present. Oxygen saturation is 89% on room air and he was placed on nasal cannula. He previously was not hypoxic. Patient has finished chemotherapy and is awaiting delivery of an oral medication at the direction of Dr. Edwards. Dr. RUDOLPH is his primary care provider. Patient states he has been declining and is anticipating needing hospice soon. His cancer is not curable. Allergies and Home Medications Allergies Coded Allergies: nabumetone (Verified Allergy, Unknown, 06/15/20) Home Medications Aspirin 81 Mg Tablet.dr, 81 MG PO DAILY, (Reported) Enalapril Maleate 2.5 Mg Tablet, 2.5 MG PO DAILY@1700, (Reported) Exenatide Microspheres 2 Mg/0.65 Ml Pen.injctr, 2 MG SQ WEEK, (Reported) Hydrocodone/Acetaminophen 1 Each Tablet, 1 EACH PO Q4H Prescribed by: MAI LOVETT on 10/21/19 1219 Metformin HCl 1,000 Mg Tablet, 1,000 MG PO DAILY, (Reported) Metoprolol Succinate 50 Mg Tab.er.24h, 50 MG PO DAILY, (Reported) Oxycodone HCl 5 Mg Capsule, 5 MG PO BID PRN for PAIN-MODERATE (5-7), (Reported) Potassium Gluconate 99 Mg Tablet, 99 MG PO DAILY, (Reported) Patient Home Medication List Home Medication List Reviewed: Yes Review of Systems Review of Systems Constitutional: no symptoms reported EENTM: no symptoms reported Respiratory: see HPI Cardiovascular: see HPI Gastrointestinal: no symptoms reported Genitourinary: no symptoms reported Musculoskeletal: no symptoms reported Skin: no symptoms reported Psychiatric/Neurological: No Symptoms Reported Hematologic/Lymphatic: No Symptoms Reported Immunological/Allergic: no symptoms reported Past Ndxwehr-Pzwkjw-Jncayo Hx Patient Social History Tobacco Use?: No Substance use?: No Pt feels they are or have been: No Immunizations Up To Date Tetanus Booster (TDap): First/Initial COVID19 Vaccinat: April COVID19 Vaccination Ruy: APRIL Seasonal Allergies Seasonal Allergies: Yes Past Medical History Surgeries: Yes (R KNEE SARCOMA REMOVED, L HIP SX) Respiratory: Yes (LUNG CANCER) Currently Using CPAP: No Currently Using BIPAP: No Cardiac: Yes High Cholesterol, Hypertension Neurological: Yes Neuropathy Genitourinary: No Gastrointestinal: No Musculoskeletal: Yes Arthritis, Rheumatoid Arthritis Endocrine: Yes Diabetes, Non-Insulin dep HEENT: Yes (CATARACTS REMOVED) Cataract Cancer: Yes (SARCOMA) Lung, Skin What Type of Treatment Did You: Surgical Intervention Psychosocial: Yes Anxiety, Depression Integumentary: No Blood Disorders: No Physical Exam-Suspected Sepsis Physical Exam Vital Signs Vital Signs - First Documented 09/22/20 11:47 Temp 35.9 Pulse 126 Resp 18 B/P (MAP) 143/93 (110) Pulse Ox 96 O2 Delivery Nasal Cannula O2 Flow Rate 2.00 Capillary Refill : Less Than 3 Seconds Blood Pressure Mean: 110 Height, Weight, BMI Height: 6'1.00" Weight: 246lbs. 0.0oz. 111.774647ym; 26.00 BMI Method:Stated General Appearance: WD/WN, Mild Distress HEENT: PERRL/EOMI, Normal ENT Inspection Neck: Normal Inspection Respiratory: No Crackles; Decreased Breath Sounds, Wheezing, Other (Tachypnea) Cardiovascular: No Edema, No Murmur, Tachycardia Extremity: Normal Inspection, Non Tender Neurologic/Psychiatric: Alert, Oriented x3, No Motor/Sensory Deficits, Normal Mood/Affect Skin: normal color, warm/dry Focused Exam Lactate Level 09/22/20 12:00: Lactic Acid Level 4.35*H 09/22/20 14:33: Lactic Acid Level 2.79*H Lactic Acid Level Progress/Results/Core Measures Suspected Sepsis SIRS Temperature: Pulse: 126 Respiratory Rate: 18 Laboratory Tests 09/22/20 12:00: White Blood Count 22.8H Blood Pressure 143 /93 Mean: 110 09/22/20 12:00: Lactic Acid Level 4.35*H 09/22/20 14:33: Lactic Acid Level 2.79*H Laboratory Tests 09/22/20 12:00: Creatinine 0.80, Platelet Count 726H, Total Bilirubin 0.9 09/22/20 12:50: INR Comment 1.6H Results/Orders Lab Results Laboratory Tests Test 09/22/20 12:00 09/22/20 12:09 09/22/20 12:50 09/22/20 14:33 Range/Units White Blood Count 22.8 H 4.3-11.0 10^3/uL Red Blood Count 3.58 L 4.30-5.52 10^6/uL Hemoglobin 9.1 L 13.3-17.7 g/dL Hematocrit 30 L 40-54 % Mean Corpuscular Volume 84 80-99 fL Mean Corpuscular Hemoglobin 25 25-34 pg Mean Corpuscular Hemoglobin Concent 30 L 32-36 g/dL Red Cell Distribution Width 21.8 H 10.0-14.5 % Platelet Count 726 H 130-400 10^3/uL Mean Platelet Volume 9.0 9.0-12.2 fL Immature Granulocyte % (Auto) 1 % Neutrophils (%) (Auto) 80 H 42-75 % Lymphocytes (%) (Auto) 6 L 12-44 % Monocytes (%) (Auto) 12 0-12 % Eosinophils (%) (Auto) 1 0-10 % Basophils (%) (Auto) 0 0-10 % Neutrophils # (Auto) 18.2 H 1.8-7.8 10^3/uL Lymphocytes # (Auto) 1.4 1.0-4.0 10^3/uL Monocytes # (Auto) 2.7 H 0.0-1.0 10^3/uL Eosinophils # (Auto) 0.1 0.0-0.3 10^3/uL Basophils # (Auto) 0.1 0.0-0.1 10^3/uL Immature Granulocyte # (Auto) 0.3 H 0.0-0.1 10^3/uL Neutrophils % (Manual) 83 % Lymphocytes % (Manual) 6 % Monocytes % (Manual) 10 % Eosinophils % (Manual) 0 % Basophils % (Manual) 0 % Band Neutrophils 1 % Polychromasia SLIGHT Poikilocytosis SLIGHT Anisocytosis SLIGHT Elliptocytes SLIGHT Sodium Level 133 L 135-145 MMOL/L Potassium Level 3.9 3.6-5.0 MMOL/L Chloride Level 95 L 98-107 MMOL/L Carbon Dioxide Level 24 21-32 MMOL/L Anion Gap 14 5-14 MMOL/L Blood Urea Nitrogen 7 7-18 MG/DL Creatinine 0.80 0.60-1.30 MG/DL Estimat Glomerular Filtration Rate 93 BUN/Creatinine Ratio 9 Glucose Level 178 H 70-105 MG/DL Lactic Acid Level 4.35 *H 2.79 *H 0.50-2.00 MMOL/L Calcium Level 8.4 L 8.5-10.1 MG/DL Corrected Calcium 9.4 8.5-10.1 MG/DL Magnesium Level 1.3 L 1.6-2.4 MG/DL Total Bilirubin 0.9 0.1-1.0 MG/DL Aspartate Amino Transf (AST/SGOT) 22 5-34 U/L Alanine Aminotransferase (ALT/SGPT) 11 0-55 U/L Alkaline Phosphatase 119 40-136 U/L Myoglobin 90.6 10.0-92.0 NG/ML Troponin I 0.034 H <0.028 NG/ML C-Reactive Protein High Sensitivity 13.63 H 0.00-0.50 MG/DL B-Type Natriuretic Peptide 105.4 H <100.0 PG/ML Total Protein 5.6 L 6.4-8.2 GM/DL Albumin 2.7 L 3.2-4.5 GM/DL Influenza Type A (RT-PCR) Not Detected Not Detecte Influenza Type B (RT-PCR) Not Detected Not Detecte SARS-CoV-2 RNA (RT-PCR) Not Detected Not Detecte Prothrombin Time 19.9 H 12.2-14.7 SEC INR Comment 1.6 H 0.8-1.4 Activated Partial Thromboplast Time 39 H 24-35 SEC D-Dimer 5.58 H 0.00-0.49 UG/ML My Orders Orders - CEDRIC CHAMBERS MD Cbc With Automated Diff (09/22/20 12:06) Magnesium (09/22/20 12:06) Chest 1 View, Ap/Pa Only (09/22/20 12:06) Ekg Tracing (09/22/20 12:06) Comprehensive Metabolic Panel (09/22/20 12:06) Myoglobin Serum (09/22/20 12:06) Protime With Inr (09/22/20 12:06) Partial Thromboplastin Time (09/22/20 12:06) O2 (09/22/20 12:06) Monitor-Rhythm Ecg Trace Only (09/22/20 12:06) Ed Iv/Invasive Line Start (09/22/20 12:06) BNP (09/22/20 12:06) Fibrin Degradation Products (09/22/20 12:06) Blood Culture (09/22/20 12:06) Vital Signs Adult Sepsis Patie Q15M (09/22/20 12:06) Remove Rings In Anticipation O (09/22/20 12:06) Lactic Acid Analyzer (09/22/20 12:06) Covid 19 Inhouse Test (09/22/20 12:08) Influenza A And B By Pcr (09/22/20 12:08) Hs C Reactive Protein (09/22/20 12:00) Troponin I (09/22/20 12:00) Manual Differential (09/22/20 12:00) Cefepime Injection (Maxipime Injection) (09/22/20 13:30) Ct Angio Chest W (09/22/20 13:24) Iohexol Injection (Omnipaque 350 Mg/Ml 1 (09/22/20 13:45) Received Contrast (Hold Metformin- Contr (09/22/20 13:45) Ns (Ivpb) (Sodium Chloride 0.9% Ivpb Bag (09/22/20 13:45) Albuterol/Ipra Inhalation Soln (Duoneb I (09/22/20 14:40) Medications Given in ED Current Medications Medications Dose Ordered Sig/Seble Route Start Time Stop Time Status Last Admin Dose Admin Albuterol/ Ipratropium 3 ml STK-MED ONCE .ROUTE 09/22/20 14:40 09/22/20 14:44 DC 09/22/20 15:02 3 ML Cefepime HCl 2000 mg/Sterile Water 20 ml @ 240 mls/hr ONCE ONCE IV 09/22/20 13:30 09/22/20 13:34 DC 09/22/20 14:05 240 MLS/HR Iohexol 100 ml ONCE ONCE IV 09/22/20 13:45 09/22/20 13:46 DC 09/22/20 13:40 89 ML Sodium Chloride 100 ml ONCE ONCE IV 09/22/20 13:45 09/22/20 13:46 DC 09/22/20 13:40 100 ML Vital Signs/I&O 09/22/20 09/22/20 09/22/20 09/22/20 11:47 11:47 15:03 15:56 Temp 35.9 Pulse 126 129 Resp 18 22 B/P (MAP) 143/93 (110) 120/64 Pulse Ox 96 93 94 O2 Delivery Nasal Cannula Room Air Nasal Cannula Nasal Cannula O2 Flow Rate 2.00 2.00 4.00 Capillary Refill : Less Than 3 Seconds Blood Pressure Mean: 110 Progress Note : Progress Note Patient was suspected of having severe sepsis. Pneumonia was the likely source. D-dimer was elevated and CT angiogram was obtained. No pulmonary emboli were identified but he did have a small right pneumothorax. Troponin was also bumped. He was given a dose of cefepime for initial treatment of infection and he was continued on nasal cannula oxygen support. DuoNeb treatment was given for his wheezing. After discussing the findings with the patient and his , they elected to pursue hospice rather than aggressive treatment. I assisted with facilitating referral to [facility]. Dr. Rudolph was notified and presented to the ER to visit with the patient. Dr. Joe was also notified and we discussed the options for the oral medication alternative. Patient wishes to forego the additional medication and pursue hospice care. Patient was transferred back to [facility] with custodial staff. ECG Initial ECG Impression Date: Sep 22, 2020 Initial ECG Impression Time: 12:09 Initial ECG Rate: 119 Initial ECG Rhythm: S.Tach Comment Sinus tachycardia with no ST elevation or depression. No abnormal intervals or axis deviation. Diagnostic Imaging Diagonstic Imaging: Xray Plain Films/CT/US/NM/MRI: chest Comments Chest x-ray viewed by me and report reviewed. See report below: NAME: VEGA ARAGON [facility] REC#: [id number] PT STATUS: DEP ER : 1940 PHYSICIAN: CEDRIC CHAMBERS MD ADMIT DATE: 09/22/20/ER Signed Date of Exam:09/22/20 CHEST 1 VIEW, AP/PA ONLY Clinical indication: Patient with chest pain. Exam: Portable chest x-ray upright view. Comparisons: Chest x-ray dated 10/21/2019. Findings: There is interval development of patchy areas of consolidation throughout both lungs with the left lung worse than the right. There is interval development of left pleural effusion which is small to moderate in size and possible small right pleural effusion. Mild cardiomegaly is seen. Pulmonary vasculature is within normal limits. There are degenerative spurs involving the spine. IMPRESSION: 1: There is interval development of diffuse bilateral lung infiltrates and bilateral pleural effusions concerning for pneumonia. 2: There is cardiomegaly with no significant pulmonary vascular congestion. Dictated by: Dictated on workstation # [id number] Dict: 09/22/20 1307 Trans: 09/22/20 1702 [facility] [id number] Interpreted by: AUGUSTIN YU MD Electronically signed by: AUGUSTIN UY MD 09/22/20 1701 Diagonstic Imaging: CT Plain Films/CT/US/NM/MRI: chest Comments CT angiogram viewed by me and report reviewed. See report below: NAME: VEGA ARAGON [facility] REC#: [id number] PT STATUS: DEP ER : 1940 PHYSICIAN: CEDRIC CHAMBERS MD ADMIT DATE: 09/22/20/ER Signed Date of Exam:09/22/20 CT ANGIO CHEST W PROCEDURE: CT angiography of the chest with contrast. TECHNIQUE: Multiple contiguous axial images were obtained through the chest after uneventful bolus administration of intravenous contrast. 3D reconstructed CTA MIP acquisitions were also performed. Auto Exposure Controls were utilized during the CT exam to meet ALARA standards for radiation dose reduction. INDICATION: Lung neoplasm and pleural effusion. COMPARISON: Correlation is made with CT chest study performed on 09/11/2020. FINDINGS: The left chest wall port has the tip at the SVC right-atrial junction. No axillary lymphadenopathy is identified. No definite mediastinal lymphadenopathy is identified. Pulmonary arterial system is without evidence of thromboembolism. No definite filling defects are seen within central, lobar, or segmental branches. The thoracic aorta is normal in caliber. There is no dissection. No pericardial fluid is seen. There is a small right pleural effusion which appears to be dependent. There does appear to be some pleural nodularity in the right base, suspicious for pleural metastatic disease. A loculated sxnjjuly-is-mybke left effusion with marked pleural nodularity appears similar to prior exam and again is suggestive of pleural metastatic disease. There are numerous large pulmonary masses throughout both lungs, similar to exam two weeks ago. Cavitary mass in the right lower lobe adjacent to the right hilum is seen. Patient has developed a very small right-sided pneumothorax less than 10%. Upper abdomen is unremarkable. IMPRESSION: Overall, stable CT angiogram of the chest when compared with study from 09/11/2020. There is no evidence of pulmonary embolism. Diffuse pulmonary metastatic disease appears about the same. The bilateral effusions, loculated on the left, appear about the same. Bilateral pleural nodularity, consistent with pleural metastatic disease is noted. Dictated by: Dictated on workstation # [id number] Dict: 09/22/20 1404 Trans: 09/22/20 1600 AS6 [id number] Interpreted by: JAY THAKUR MD Electronically signed by: JAY THAKUR MD 09/22/20 1600 Departure Impression Primary Impression: Severe sepsis Additional Impressions: Pneumonia Qualified Codes: J18.9 - Pneumonia, unspecified organism Metastatic cancer Qualified Codes: C79.9 - Secondary malignant neoplasm of unspecified site Pneumothorax, right Elevated troponin Disposition: HOME, SELF-CARE Condition: Improved Departure-Patient Inst. Decision time for Depature: 15:49 Referrals: QUINTEN RUDOLPH DO (PCP/Family) Primary Care Physician Patient Instructions: Pneumothorax (Collapsed Lung), Sepsis in Adults Add. Discharge Instructions: Hospice will provide medications as needed for comfort. Use nebulizer treatments and oxygen at 2 to 4 L/min for shortness of breath and comfort. Contact Dr. RUDOLPH with questions or concerns. All discharge instructions reviewed with patient and/or family. Voiced understanding. Copy Copies To 1: QUINTEN RUDOLPH JOSHUA T MD Sep 22, 2020 15:50
[2020-09-22 15:56] VITALS: BP 120/64
== END 2020-09-22 16:00 | disposition home or self-care (01) ==
LOC: EDUNIT# 11:47 → ER 11:48
DX: C78.00 Secondary malignant neoplasm of unspecified lung (principal); R65.20 Severe sepsis without septic shock; J18.9 Pneumonia, unspecified organism; J93.9 Pneumothorax, unspecified; R77.8 Other specified abnormalities of plasma proteins; I10 Essential (primary) hypertension; E11.9 Type 2 diabetes mellitus without complications; Z20.822 Contact with and (suspected) exposure to COVID-19; Z79.82 Long term (current) use of aspirin; Z79.84 Long term (current) use of oral hypoglycemic drugs; Z79.899 Other long term (current) drug therapy
CPT/HCPCS: 36415; 71045; 71275; 80053; 83605; 83735; 83874; 83880; 84484; 85007; 85027; 85379; 85610; 85730; 86141; 87040; 87636; 93005; 93041; 94640; 96365